=== PATIENT | female | born 1965 | race Caucasian/White ===

== ENCOUNTER 2019-03-28 18:04 | Inpatient (IN) | payer BC, OTHER ==
[~2019-03-28] VITALS: Ht 160 cm; Wt 64.2 kg
[2019-03-28] MEDS ORDERED: SODIUM CHLORIDE 0.9% 1L BAG IV* STA (18:43)
[2019-03-28] MEDS ORDERED: ONDANSETRON 4 MG INJ IV STA (18:44)
[2019-03-28] MEDS ORDERED: morphine 4 MG/ML VIAL IV STA (18:44)
[2019-03-28] MEDS ORDERED: CEFTRIAXONE 1 GM/50 ML (PMX) 50 ML IVPB ONE (19:00)
[2019-03-28] MEDS ORDERED: IBUPROFEN 600 MG TAB PO ONE (19:00)
--- NOTE | 2019-03-28 19:37 | ERD ---
ER Documentation Chief Complaint Chief Complaint abdominal pain around naval x2 wks, w/constipation, denies n/v/d HPI This is a 53-year-old woman referred here by medical clinic for diffuse abdominal pain and cramping and general constipation. She states the pain began in the lower abdomen about 2 weeks ago and has been getting steadily higher and more severe, the pain is been constant and daily now encompassing most of the abdomen worse on the right side compared to the left. She developed a fever today she has had no vomiting or diarrhea, denies weight loss, no chest pain or shortness of breath, no dysuria, no blood per rectum or melena. ROS All systems reviewed and are negative except as per history of present illness. Allergies Allergies: Coded Allergies: No Known Allergy (Unverified , 03/28/19) PMhx/Soc None Medical and Surgical Hx: pt denies Medical Hx, pt denies Surgical Hx Hx Alcohol Use: No Hx Substance Use: No Hx Tobacco Use: No Smoking Status: Never smoker FmHx Family History: No diabetes Physical Exam Vitals Vital Signs Date Temp Pulse Resp B/P (MAP) Pulse Ox O2 O2 Flow FiO2 Time Delivery Rate 03/28/19 101 17 136/77 97 Room Air 20:10 (96) 03/28/19 99.4 19:06 03/28/19 100.9 111 25 136/78 98 Room Air 18:31 (97) 03/28/19 100.9 122 18 120/63 96 18:08 (82) Physical Exam GENERAL: Well-developed, well-nourished, well-hydrated, febrile HEENT: Moist mucous membranes, pink conjunctiva, no cervical spine tenderness or step-off deformities, no goiter, no jaundice or icterus, extraocular movements intact without pain. No submandibular induration, and no pharyngeal erythema NEURO: Alert and oriented 3, cranial nerves II through XII intact bilaterally, pupils equal round reactive to light, no focal deficits or facial asymmetry, sensation intact distally Strength 5/5 in upper and lower extremities bilaterally CARDIAC: Tachycardic and regular no murmurs rubs or gallops LUNGS: Clear bilaterally no wheezing crackles or stridor ABDOMEN: Diffuse tenderness to touch with voluntary guarding, no rigidity or masses palpated SKIN: Warm and dry to touch, no abrasions, contusions, or hematomas, no lacerations, no ecchymosis, no target lesions, and without ulcers EXTREMITIES: No clubbing cyanosis or edema, calves are bilaterally symmetrical, no Homans sign, no popliteal cord sign. Distal pulses equal and bilateral PSYCH: Normal affect without agitation or irritability Result Diagram: 03/28/19185203/28/191852 Results 24 hrs Laboratory Tests Test 03/28/19 18:27 03/28/19 18:53 03/28/19 18:54 03/28/19 19:27 POC Venous 2.1 mmol/L Lactate White Blood Count 8.4 10^3/ul Red Blood Count 4.09 10^6/ul Hemoglobin 11.3 g/dl Hematocrit 34.0 % Mean Corpuscular 83.1 fl Volume Mean Corpuscular 27.6 pg Hemoglobin Mean Corpuscular 33.2 g/dl Hemoglobin Concen t Red Cell 15.8 % Distribution Width Platelet Count 335 10^3/UL Mean Platelet 9.8 fl Volume Immature 0.200 % Granulocytes % Neutrophils % 65.6 % Lymphocytes % 23.8 % Monocytes % 9.2 % Eosinophils % 0.8 % Basophils % 0.4 % Nucleated Red 0.0 /100WBC Blood Cells % Immature 0.020 10^3/ul Granulocytes # Neutrophils # 5.5 10^3/ul Lymphocytes # 2.0 10^3/ul Monocytes # 0.8 10^3/ul Eosinophils # 0.1 10^3/ul Basophils # 0.0 10^3/ul Nucleated Red 0.0 10^3/ul Blood Cells # Prothrombin Time 13.6 Sec Prothrombin Time 1.1 Ratio INR International 1.03 Normalized Ratio Activated 30.7 Sec Partial Thrombopl ast Time Sodium Level 139 mmol/L Potassium Level 3.5 mmol/L Chloride Level 104 mmol/L Carbon Dioxide 27 mmol/L Level Anion Gap 8 Blood Urea 11 mg/dl Nitrogen Creatinine 0.64 mg/dl Est Glomerular > 60 mL/min Filtrat Rate mL/min Glucose Level 166 mg/dl Calcium Level 9.0 mg/dl Total Bilirubin 0.4 mg/dl Direct Bilirubin 0.00 mg/dl Indirect 0.4 mg/dl Bilirubin Aspartate Amino 29 IU/L Transf (AST/SGOT) Alanine 21 IU/L Aminotransferase (ALT/SGPT) Alkaline 99 IU/L Phosphatase Troponin I < 0.012 ng/ml Total Protein 7.5 g/dl Albumin 4.1 g/dl Globulin 3.40 g/dl Albumin/Globulin 1.20 Ratio Lipase 99 U/L Lactic Acid Level 1.5 mmol/L Urine Color COLORLESS Urine Clarity CLEAR Urine pH 6.0 Urine Specific 1.003 [place] Urine Ketones NEGATIVE mg/dL Urine Nitrite NEGATIVE mg/dL Urine Bilirubin NEGATIVE mg/dL Urine NEGATIVE mg/dL Urobilinogen Urine Leukocyte NEGATIVE Elizabeth/ul Esterase Urine Hemoglobin NEGATIVE mg/dL Urine Glucose NEGATIVE mg/dL Urine Total NEGATIVE mg/dl Protein Current Medications Medications Dose Sig/Chica Start Time Status Last (Trade) Ordered Route PRN Stop Time Admin Dose Reason Admin Sodium 3,000 ml BOLUS OVER 2 03/28/19 DC 03/28/19 Chloride HOURS STAT 18:43 19:01 (NS) IV* 03/28/19 18:45 Ceftriaxone 50 ml @ ONCE ONCE 03/28/19 DC 03/28/19 Sodium 100 mls/hr IVPB 19:00 19:06 03/28/19 19:29 Ibuprofen 600 mg ONCE ONCE 03/28/19 DC 03/28/19 (Motrin) PO 19:00 19:06 03/28/19 19:01 Morphine 4 mg ONCE STAT 03/28/19 DC 03/28/19 Sulfate IV 18:44 19:02 (morphine) 03/28/19 18:46 Ondansetron 4 mg ONCE STAT 03/28/19 DC 03/28/19 HCl (Zofran IV 18:44 19:06 Inj) 03/28/19 18:46 IV Flush 3 ml PER 03/28/19 UNV (NS 3 ml) PROTOCOL IV 21:00 Ondansetron 4 mg Q6H PRN 03/28/19 UNV HCl (Zofran IV 21:00 Inj) NAUSEA/VOMITI NG 650 mg Q6H PRN 03/28/19 UNV Acetaminophen PO .PAIN 1-3 21:00 (Tylenol OR TEMP Tab) Morphine 2 mg Q4H PRN 03/28/19 UNV Sulfate IV .SEVERE 21:00 (morphine) PAIN 7-10 Docusate 100 mg Q12H PRN 03/28/19 UNV Sodium PO 21:00 (Colace) .CONSTIPATION Bisacodyl 5 mg DAILY PRN 03/28/19 UNV (Dulcolax) PO 21:00 .CONSTIPATION Vancomycin VANCOMYCIN PER 03/28/19 UNV HCl (Vanco PER PHARMACY PROTOCOL XX 21:00 Iv Per Pharmacy) Piperacillin 100 ml @ Q6 IVPB 03/29/19 UNV Sod/ 200 mls/hr 00:00 Tazobactam Sod Procedures/MDM IV line was established patient was placed on monitoring and evaluation advisor rhythm strip revealed a sinus rhythm at about 90 bpm with upright P and T waves. Patient was febrile, blood cultures have been ordered results are pending I will follow-up. I administered 3 L normal saline IV, ibuprofen 600 mg p.o., morphine 4 mg IV, Zofran 4 mg IV, ceftriaxone 1 g IV EKG performed, read by me: 99 bpm, normal sinus rhythm, normal axis, no acute ST segment changes, narrow QRS complex, with good R-wave progression in precordial leads. One AP view of the chest performed, read by me reveals no acute infiltrates, normal mediastinum, sharp costophrenic and cardiac borders, no air under the diaphragm. Otherwise unremarkable chest x-ray. CBC and electrolytes were normal, liver function tests were normal, troponin was negative, urine analysis was negative for infection, lactic acid was low at 2.1 then 1.5. I do not suspect sepsis. CT scan of the abdomen pelvis was performed, IMPRESSION: Thickening of the gastric body is seen which has a slightly nodular border extending into the surrounding fat. This is seen along with findings suspicious for peritoneal carcinomatosis and this could represent gastric neoplasm with peritoneal involvement. This can be better evaluated with endoscopy. No renal or ureteral calculi with no evidence of hydronephrosis. Mild compression of T12 is of unknown chronicity. Patient's pain resolved and vital signs are normal although she has a concerning CT scan and may require further inpatient management including antibiotics and further imaging to be deferred to admitting team. Departure Diagnosis: Primary Impression: Peritoneal carcinomatosis Additional Impression: Gastric neoplasm Condition: MACO Carrillo MD Mar 28, 2019 19:37
--- NOTE | 2019-03-28 20:46 | HP ---
Date/Time of Note Date/Time of Note DATE: 03/28/19 TIME: 20:45 Assessment/Plan VTE Prophylaxis SCD applied (from Nsg): Yes Pharmacological prophylaxis: NA/contraindicated Pharm contraindication: low risk/ambulating Lines/Catheters IV Catheter Type (from Nrsg): Saline Lock Assessment/Plan Hospital Course This is a 53-year female being admitted to the [facility] floor for: #1 severe sepsis: Possibly secondary to GI etiology versus fever secondary to underlying neoplasm. CT scan shows:Thickening of the gastric body is seen which has a slightly nodular border extending into the surrounding fat. This is seen along with findings suspicious for peritoneal carcinomatosis and this could represent gastric neoplasm with peritoneal involvement. This can be better evaluated with endoscopy. Put patient on broad-spectrum antibiotics at the current time of vancomycin and Zosyn. Trend lactic acid levels initially was 2.1. Await culture results. #2 suspect gastric neoplasm: Again CT scan shows signs of possible peritoneal carcinomatosis/gastric neoplasm. Recommendation of the current time is for endoscopy. We will put patient on clear liquid diet, consult GI for further evaluation. Will check tumor markers including CA 125, CEA, CA 1 99. Will consult hematology Dr. Melgoza. #3 normocytic anemia: We will check stool occult blood. patient denies any bleeding. #4 DVT GI prophylaxis: SCDs, no GI prophylaxis indicated Further treatment strategy will be implemented as per the clinical course. Result Diagram: 03/28/19185203/28/19 1853 Results 24hrs Laboratory Tests Test 03/28/19 18:27 03/28/19 18:53 03/28/19 18:54 03/28/19 19:27 POC Venous Lactate 2.1 *H White Blood Count 8.4 Red Blood Count 4.09 L Hemoglobin 11.3 L Hematocrit 34.0 L Mean Corpuscular 83.1 Volume Mean Corpuscular 27.6 L Hemoglobin Mean Corpuscular 33.2 Hemoglobin Concent Red Cell 15.8 H Distribution Width Platelet Count 335 Mean Platelet Volume 9.8 Immature 0.200 Granulocytes % Neutrophils % 65.6 Lymphocytes % 23.8 Monocytes % 9.2 Eosinophils % 0.8 Basophils % 0.4 Nucleated Red Blood 0.0 Cells % Immature 0.020 Granulocytes # Neutrophils # 5.5 Lymphocytes # 2.0 Monocytes # 0.8 Eosinophils # 0.1 Basophils # 0.0 Nucleated Red Blood 0.0 Cells # Prothrombin Time 13.6 Prothrombin Time 1.1 Ratio INR International 1.03 Normalized Ratio Activated 30.7 Partial Thromboplast Time Sodium Level 139 Potassium Level 3.5 Chloride Level 104 Carbon Dioxide Level 27 Anion Gap 8 Blood Urea Nitrogen 11 Creatinine 0.64 Est Glomerular > 60 Filtrat Rate mL/min Glucose Level 166 Calcium Level 9.0 Total Bilirubin 0.4 Direct Bilirubin 0.00 Indirect Bilirubin 0.4 Aspartate Amino 29 Transf (AST/SGOT) Alanine 21 Aminotransferase (AL T/SGPT) Alkaline Phosphatase 99 Troponin I < 0.012 Total Protein 7.5 Albumin 4.1 Globulin 3.40 H Albumin/Globulin 1.20 Ratio Lipase 99 Lactic Acid Level 1.5 Urine Color COLORLESS Urine Clarity CLEAR Urine pH 6.0 Urine Specific 1.003 [place] Urine Ketones NEGATIVE Urine Nitrite NEGATIVE Urine Bilirubin NEGATIVE Urine Urobilinogen NEGATIVE Urine Leukocyte NEGATIVE Esterase Urine Hemoglobin NEGATIVE Urine Glucose NEGATIVE Urine Total Protein NEGATIVE HPI/ROS Admit Date/Time Admit Date/Time Hx of Present Illness Chief complaint: Abdominal pain x2 weeks This is a 53-year-old woman referred here by medical clinic for diffuse abdominal pain and cramping and general constipation. She states the pain began in the lower abdomen about 2 weeks ago and has been getting steadily higher and more severe, the pain is been constant and daily now encompassing most of the abdomen worse on the right side compared to the left. She developed a fever today she has had no vomiting or diarrhea, denies weight loss, no chest pain or shortness of breath, no dysuria, no blood per rectum or melena. She did report her last bowel movement was yesterday. Allergies: NKDA Medications: None ROS Const: As per HPI Eyes : No pain discharge or redness or change in visual acuity ENT: No pain, sore throat, congestion, congestion, dysphagia or discharge Respiratory: No shortness of breath, cough, sputum, wheezing, or pleuritic pain Cardiovascular: No chest pain, palpitation, PND, or edema GI : As per HPI Genitourinary: No dysuria, hematuria, flank pain , discharge or CVA tenderness Musculoskeletal: No joint pain, back pain, neck pain, restricted range of motion in neck or joints Skin: No rash, bruising or hives Neuro: No headache, dizziness, syncope, seizure, focal weakness Endocrine: No polyuria, polydipsia, temperature intolerance Psych: No hallucination, depression, anxiety or suicidal ideation PMH/Family/Social Past Medical History Medical History: no pertinent history Coded Allergies: No Known Allergy (Unverified , 03/28/19) Past Surgical History x2, tubal ligation Family History Significant Family History: no pertinent family hx Social History Alcohol Use: none Smoking Status: Never smoker Drug Use: none Exam/Review of Systems Vital Signs Vitals Vital Signs Date Temp Pulse Resp B/P (MAP) Pulse Ox O2 O2 Flow FiO2 Time Delivery Rate 03/28/19 101 17 136/77 97 Room Air 20:10 (96) 03/28/19 99.4 19:06 Exam Exam General: Patient is a pleasant female currently lying in bed in no acute distress HEENT: Atraumatic, normocephalic. The pupils are equal, round and reactive. Extraocular motor are intact Neck: Supple with full range of motion. No rigidity or meningismus Chest: Nontender Lungs: Clear to auscultation bilaterally no crackles rales or wheezing Heart: Normal S1-S2, Regular rhythm and rate. No murmur, S3, or S4 Abdomen: Soft , tender to palpation over the umbilical area, normal bowel sounds, no rebound or guarding. Extremities: Normal to inspection, no edema no cyanosis Neurologic: Normal mental status, speech normal, cranial nerves II through XII are intact, motor and sensory are intact, no focal weakness Additional Comments PROCEDURE: CT abdomen and pelvis without contrast. CLINICAL INDICATION: Abdominal pain. TECHNIQUE: CT scan of the abdomen and pelvis without contrast was performed on a multi-slice CT scanner . Sagittal and coronal reformatted images were obtained from the axial source images. One or more of the following dose reduction techniques were used: - Automated exposure control. - Adjustment of the mA and/or kV according to patient size. - Use of iterative reconstruction technique. DICOM images are available DLP 434.3 mGycm. CTDIvol 7.4 mGy COMPARISON: None FINDINGS: Fine detail of the soft tissues is limited secondary to the lack of IV contrast. Evaluation for enhancing lesions cannot be performed. Lower thorax:. The lung bases are clear. Liver: There is uniform density of the liver with no gross focal lesion. Biliary: The gallbladder is unremarkable without surrounding inflammation. No biliary dilatation. Pancreas: Homogeneous density of the pancreas without visible focal lesion or cystic abnormality. There is no pancreatic ductal dilatation. Spleen: Unremarkable without enlargement or focal lesion. Adrenal Glands: The adrenal glands are within normal limits without mass. Urinary: The kidneys are symmetric in size bilaterally. There are no visible renal or ureteral stones. There is no hydronephrosis. Gastrointestinal: There is irregular wall thickening of the distal gastric body with a nodular border extending into the surrounding fat. There is no bowel obstruction or appendicitis. Lymph nodes: Borderline lymph nodes are seen around the gastric margin. Vascular: The aorta is unremarkable. Peritoneum/mesentery: There is mild intraperitoneal free fluid with the presence of multiple small soft tissue nodular foci within the peritoneal cavity with mild anterior mesenteric thickening. There is no free air. Reproductive organs: The uterus and adnexal structures are grossly within normal limits. Musculoskeletal: Degenerative changes are seen in the lumbar spine with mild compression of T12. Other: None IMPRESSION: Thickening of the gastric body is seen which has a slightly nodular border extending into the surrounding fat. This is seen along with findings suspicious for peritoneal carcinomatosis and this could represent gastric neoplasm with peritoneal involvement. This can be better evaluated with endoscopy. No renal or ureteral calculi with no evidence of hydronephrosis. Mild compression of T12 is of unknown chronicity. RPTAT: AA .Randell Gonzalez MD, MD Date Time Electronically viewed and signed by .Randell Gonzalez MD, MD on 03/28/2019 19:42 .J/ CC: MACO BURGOS MD [phone] PROCEDURE: XR Chest. CLINICAL INDICATION: Chest pain. Sepsis TECHNIQUE: Portable AP view of the chest was obtained. COMPARISON: None. FINDINGS: The cardiomediastinal silhouette is within normal limits. The lungs are clear. There is no evidence for pleural effusion, pneumothorax or pulmonary vascular congestion. The osseous structures are intact with no evidence for acute abnormality. RPTAT:HJJR IMPRESSION: No evidence for acute intrathoracic pathology. Florin Brooks, Physician Date Time Electronically viewed and signed by Florin Brooks, Physician on 03/28/2019 19:00 JR/ CC: MACO BURGOS MD [id number] BAO BARRETT Mar 28, 2019 20:46
[2019-03-28] MEDS ORDERED: ACETAMINOPHEN 325 MG TAB PO PRN (21:00)
[2019-03-28] MEDS ORDERED: DOCUSATE SODIUM 100 MG CAP PO PRN (21:00)
[2019-03-28] MEDS ORDERED: BISACODYL (EC) 5 MG TAB PO PRN (21:00)
[2019-03-28] MEDS ORDERED: NACL 0.9% 3 ML SYG IV SCH (21:00)
[2019-03-28] MEDS ORDERED: VANCOMYCIN IV PER PHARMACY XX SCH (21:00)
[2019-03-28] MEDS ORDERED: ONDANSETRON 4 MG INJ IV PRN (21:00)
[2019-03-28] MEDS ORDERED: VANCOMYCIN HCL 1.25 GM in SOD CHLORIDE 0.9% 250 ML IVPB SCH (22:30)
[2019-03-28 22:39] VITALS: Ht 160 cm; Wt 64.2 kg
[2019-03-28 22:45] VITALS: BP 116/57; PULSE 88; RESP 18
[2019-03-28] MEDS ORDERED: POLY17PO6 PO (23:11)
[2019-03-28] MEDS: PIPER-TAZO 3.375 GM IV (PMX) 100 ML IVPB SCH (23:33)
[2019-03-29] VITALS (7 sets, daily range): BP systolic 111–146; BP diastolic 53–72; PULSE 84–100; RESP 16–20
[2019-03-29] MEDS: PIPER-TAZO 3.375 GM IV (PMX) 100 ML IVPB SCH ×4 (02:00→17:26)
[2019-03-29] MEDS ORDERED: KETOROLAC 15 MG INJ IV STA (03:21)
[2019-03-29] MEDS ORDERED: DIPHENHYDRAMINE 50 MG CAP PO ONE (03:30)
[2019-03-29] MEDS: VANCOMYCIN 750 MG (PMX) 250 ML IVPB SCH ×2 (10:12→22:05)
--- NOTE | 2019-03-29 10:37 | CONS ---
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 Patient seen in collaboration with Dr. Soto CC: BLADE SOTO MD ; Consultation Date/Type/Reason Admit Date/Time Date of Consultation: Mar 29, 2019 Type of Consult GI Reason for Consultation Abdominal pain Date/Time of Note DATE: 03/29/19 TIME: 10:29 Hx of Present Illness This is a 53-year-old [place]-speaking female with PMH of pre-diabetes who presented to the emergency department with complaints of progressive abdominal pain x2 weeks without nausea or vomiting, and fevers. Work-up in the ED included a CT abdomen/pelvis without contrast. Findings are suspicious for peritoneal carcinomatosis which could represent gastric neoplasm with peritoneal involvement. Labs reveal mild normocytic anemia. She has been consulted for endoscopic evaluation. Patient denies overt signs of GI. She additionally den ies unintentional weight loss and has never had an EGD or colonoscopy. Review of Systems: A 12 system, review was conducted and is negative except as noted in the HPI or here. Past Medical History Medical History: no pertinent history Home Meds Reported Medications Polyethylene Glycol* (Miralax*) 17 Gm Powd.pack, 8.5 GM PO DAILY, #30 PACKET 03/28/19 Medications Current Medications IV Flush (NS 3 ml) 3 ml PER PROTOCOL IV ; Start 03/28/19 at 21:00 Ondansetron HCl (Zofran Inj) 4 mg Q6H PRN IV NAUSEA/VOMITING; Start 03/28/19 at 21:00 Acetaminophen (Tylenol Tab) 650 mg Q6H PRN PO .PAIN 1-3 OR TEMP; Start 03/28/19 at 21:00 Morphine Sulfate (morphine) 2 mg Q4H PRN IV .SEVERE PAIN 7-10; Start 03/28/19 at 21:00 Docusate Sodium (Colace) 100 mg Q12H PRN PO .CONSTIPATION; Start 03/28/19 at 21:00 Bisacodyl (Dulcolax) 5 mg DAILY PRN PO .CONSTIPATION; Start 03/28/19 at 21:00 Vancomycin HCl (Vanco Iv Per Pharmacy) VANCOMYCIN PER PHARMACY PER PROTOCOL XX ; Start 03/28/19 at 21:00 Piperacillin Sod/ Tazobactam Sod 100 ml @ 200 mls/hr Q6 IVPB Last administered on 03/29/19at 05:35; Admin Dose 200 MLS/HR; Start 03/28/19 at 22:00 Vancomycin/Sodium Chloride 250 ml @ 125 mls/hr Q12H IVPB Last administered on 03/29/19at 10:12; Admin Dose 125 MLS/HR; Start 03/29/19 at 10:00 Miscellaneous Information (*Rx Drug Level Order Reminder*) VANCO TR AT 0900 0900 ONCE XX ; Start 03/30/19 at 09:00; Stop 03/30/19 at 09:01 Allergies: Coded Allergies: No Known Allergy (Unverified , 03/28/19) Social History Alcohol Use: none Smoking Status: Never smoker Drug Use: none Exam/Review of Systems Exam Vitals Vital Signs Date Temp Pulse Resp B/P (MAP) Pulse Ox O2 O2 Flow FiO2 Time Delivery Rate 03/29/19 98.1 84 20 121/57 98 07:50 (78) 03/28/19 Room Air 21:51 Intake and Output 03/28/19 03/28/19 03/29/19 1515:00 23:00 07:00 IntakeIntake Total 118 ml 450 ml BalanceBalance 118 ml 450 ml Exam PHYSICAL EXAMINATION: GENERAL: Alert & oriented x 3, in no acute distress SKIN: No lesions HEAD: Normocephalic, atraumatic, no tenderness. EYES: Pupils equal reactive to light, no discharge. EARS/NOSE AND THROAT: Ears normal, nose normal, oropharynx normal. NECK: Supple, no masses CHEST: Inspection within normal limits. CARDIOVASCULAR: Heart: Regular rate and rhythm RESPIRATORY: Lungs clear to auscultation GASTROINTESTINAL AND LIVER: Abdomen: Soft, non tenderness, non-distended, no hernias, no masses, no organomegaly, no ascites, no guarding, no rebound tenderness, normoactive bowel sounds. Rectal: Deferred. EXTREMITIES: No cyanosis, clubbing or edema. Results Result Diagram: 03/29/1943403/29/19434 Results 24hrs Laboratory Tests Test 03/28/19 18:27 03/28/19 18:53 03/28/19 18:54 03/28/19 19:27 POC Venous Lactate 2.1 *H White Blood Count 8.4 Red Blood Count 4.09 L Hemoglobin 11.3 L Hematocrit 34.0 L Mean Corpuscular 83.1 Volume Mean Corpuscular 27.6 L Hemoglobin Mean Corpuscular 33.2 Hemoglobin Concent Red Cell 15.8 H Distribution Width Platelet Count 335 Mean Platelet Volume 9.8 Immature 0.200 Granulocytes % Neutrophils % 65.6 Lymphocytes % 23.8 Monocytes % 9.2 Eosinophils % 0.8 Basophils % 0.4 Nucleated Red Blood 0.0 Cells % Immature 0.020 Granulocytes # Neutrophils # 5.5 Lymphocytes # 2.0 Monocytes # 0.8 Eosinophils # 0.1 Basophils # 0.0 Nucleated Red Blood 0.0 Cells # Prothrombin Time 13.6 Prothrombin Time 1.1 Ratio INR International 1.03 Normalized Ratio Activated 30.7 Partial Thromboplast Time Sodium Level 139 Potassium Level 3.5 Chloride Level 104 Carbon Dioxide Level 27 Anion Gap 8 Blood Urea Nitrogen 11 Creatinine 0.64 Est Glomerular > 60 Filtrat Rate mL/min Glucose Level 166 Calcium Level 9.0 Total Bilirubin 0.4 Direct Bilirubin 0.00 Indirect Bilirubin 0.4 Aspartate Amino 29 Transf (AST/SGOT) Alanine 21 Aminotransferase (AL T/SGPT) Alkaline Phosphatase 99 Troponin I < 0.012 Total Protein 7.5 Albumin 4.1 Globulin 3.40 H Albumin/Globulin 1.20 Ratio Lipase 99 Carcinoembryonic < 0.3 Antigen CA 19-9 Antigen 10.1 CA 125 Antigen 42.1 H Lactic Acid Level 1.5 Urine Color COLORLESS Urine Clarity CLEAR Urine pH 6.0 Urine Specific 1.003 [place] Urine Ketones NEGATIVE Urine Nitrite NEGATIVE Urine Bilirubin NEGATIVE Urine Urobilinogen NEGATIVE Urine Leukocyte NEGATIVE Esterase Urine Hemoglobin NEGATIVE Urine Glucose NEGATIVE Urine Total Protein NEGATIVE Test 03/29/19 04:32 03/29/19 04:35 Iron Level 60 Total Iron Binding 316 Capacity Percent Iron 19 L Saturation Ferritin 11.1 White Blood Count 7.3 Red Blood Count 3.86 L Hemoglobin 10.6 L Hematocrit 32.2 L Mean Corpuscular 83.4 Volume Mean Corpuscular 27.5 L Hemoglobin Mean Corpuscular 32.9 Hemoglobin Concent Red Cell 16.1 H Distribution Width Platelet Count 308 Mean Platelet Volume 10.5 H Immature 0.100 Granulocytes % Neutrophils % 61.0 Lymphocytes % 28.6 Monocytes % 8.9 Eosinophils % 1.0 Basophils % 0.4 Nucleated Red Blood 0.0 Cells % Immature 0.010 Granulocytes # Neutrophils # 4.4 Lymphocytes # 2.1 Monocytes # 0.7 Eosinophils # 0.1 Basophils # 0.0 Nucleated Red Blood 0.0 Cells # Sodium Level 143 Potassium Level 3.8 Chloride Level 110 Carbon Dioxide Level 29 Anion Gap 4 L Blood Urea Nitrogen 7 Creatinine 0.68 Est Glomerular > 60 Filtrat Rate mL/min Glucose Level 94 # Hemoglobin A1c 6.0 H Calcium Level 8.4 Magnesium Level 2.1 Total Bilirubin 0.6 Direct Bilirubin 0.00 Indirect Bilirubin 0.6 Aspartate Amino 24 Transf (AST/SGOT) Alanine 21 Aminotransferase (AL T/SGPT) Alkaline Phosphatase 77 Total Protein 6.0 #L Albumin 3.2 L Globulin 2.80 Albumin/Globulin 1.14 Ratio Triglycerides Level 87 Cholesterol Level 154 LDL Cholesterol, 99 Calculated HDL Cholesterol 38 Cholesterol/HDL 4.0 Ratio Thyroid Stimulating 6.460 H Hormone (TSH) Medications Medication Current Medications IV Flush (NS 3 ml) 3 ml PER PROTOCOL IV ; Start 03/28/19 at 21:00 Ondansetron HCl (Zofran Inj) 4 mg Q6H PRN IV NAUSEA/VOMITING; Start 03/28/19 at 21:00 Acetaminophen (Tylenol Tab) 650 mg Q6H PRN PO .PAIN 1-3 OR TEMP; Start 03/28/19 at 21:00 Morphine Sulfate (morphine) 2 mg Q4H PRN IV .SEVERE PAIN 7-10; Start 03/28/19 at 21:00 Docusate Sodium (Colace) 100 mg Q12H PRN PO .CONSTIPATION; Start 03/28/19 at 21:00 Bisacodyl (Dulcolax) 5 mg DAILY PRN PO .CONSTIPATION; Start 03/28/19 at 21:00 Vancomycin HCl (Vanco Iv Per Pharmacy) VANCOMYCIN PER PHARMACY PER PROTOCOL XX ; Start 03/28/19 at 21:00 Piperacillin Sod/ Tazobactam Sod 100 ml @ 200 mls/hr Q6 IVPB Last administered on 03/29/19at 05:35; Admin Dose 200 MLS/HR; Start 03/28/19 at 22:00 Vancomycin/Sodium Chloride 250 ml @ 125 mls/hr Q12H IVPB Last administered on 03/29/19at 10:12; Admin Dose 125 MLS/HR; Start 03/29/19 at 10:00 Miscellaneous Information (*Rx Drug Level Order Reminder*) VANCO TR AT 0900 0900 ONCE XX ; Start 03/30/19 at 09:00; Stop 03/30/19 at 09:01 EB CONTRERAS Mar 29, 2019 10:37
[2019-03-29] MEDS: morphine 2 MG INJ IV PRN (14:33)
--- NOTE | 2019-03-29 15:32 | PN ---
Date/Time of Note Date/Time of Note DATE: 03/29/19 TIME: 15:30 Assessment/Plan VTE Prophylaxis Risk score (from Ns)>0 risk: 1 SCD applied (from Ns): No SCD contraindicated: other Pharmacological prophylaxis: NA/contraindicated Pharm contraindication: low risk/ambulating Lines/Catheters IV Catheter Type [facility]from [facility] Saline Lock Assessment/Plan Hospital Course SUBJECTIVE: Complains of abdominal pain. OBJECTIVE: Physical Exam General: Adequately build 53 year-old female lying in bed in no apparent distress. HEENT: Normocephalic, atraumatic. Eyes: Anicteric sclerae, conjunctivae clear. ENT: Nasal septum midline, oral mucosa moist. Neck supple, no JVD noticed. Respiratory: Bilaterally clear breath sounds. No use of accessory muscles of respiration. No adventitious breath sounds. Cardiovascular: S1, S2 heard. No murmurs or gallops. Abdomen: Soft and nondistended. Minimal epigastric tenderness. Bowel sounds positive in all 4 quadrants. Genitourinary: Deferred. Extremities: No cyanosis, no clubbing, no edema. Peripheral pulses palpable. Neurologic: Cranial nerves II through XII grossly intact. The patient is awake, alert, and oriented. Skin: Normal skin turgor. No skin rashes. Labs & Vitals per chart ASSESSMENT & PLAN 53-year-old female with no significant past medical he was referred by her medical clinic for diffuse abdominal pain, cramping anginal constipation was found to have underlying febrile illness, tachycardia, and lactic acidosis in the emergency room with CT of the abdomen showing thickening of the gastric body suspicious for peritoneal carcinomatosis and possible neoplasm, who was admitted to inpatient setting for further treatment and evaluation. 1. Sepsis with febrile illness, tachycardia, and lactic acidosis, present on admission. Etiology unclear. On empiric antimicrobials. If cultures are negative, the patient will be taken off antibiotics. 2. Thickening of the gastric body with possible underlying gastric neoplasm. Gastroenterology has been consulted. The patient is scheduled for esophagogastroduodenoscopy. Tumor markers are pending at this time. 3. Prediabetes. Hemoglobin A1c 6.0. Monitor glycemic trends. 4. Normocytic anemia. Etiology unclear. Stool for OB x1-. Monitor H&H closely. The patient scheduled for esophagogastroduodenoscopy. 5. Fluids, electrolytes, and nutrition. N.p.o. except for medications. IV fluids. 6. DVT prophylaxis. Bilateral SCDs. 7. Plan. Continue empiric antimicrobials. Await final cultures. Await esophagogastroduodenoscopy. The patient was seen in collaboration with Dr. Pryor. Result Diagram: 03/29/19 0435 03/29/19 0435 Results 24hrs Laboratory Tests Test 03/28/19 18:27 03/28/19 18:53 03/28/19 18:54 03/28/19 19:27 POC Venous Lactate 2.1 *H White Blood Count 8.4 Red Blood Count 4.09 L Hemoglobin 11.3 L Hematocrit 34.0 L Mean Corpuscular 83.1 Volume Mean Corpuscular 27.6 L Hemoglobin Mean Corpuscular 33.2 Hemoglobin Concent Red Cell 15.8 H Distribution Width Platelet Count 335 Mean Platelet Volume 9.8 Immature 0.200 Granulocytes % Neutrophils % 65.6 Lymphocytes % 23.8 Monocytes % 9.2 Eosinophils % 0.8 Basophils % 0.4 Nucleated Red Blood 0.0 Cells % Immature 0.020 Granulocytes # Neutrophils # 5.5 Lymphocytes # 2.0 Monocytes # 0.8 Eosinophils # 0.1 Basophils # 0.0 Nucleated Red Blood 0.0 Cells # Prothrombin Time 13.6 Prothrombin Time 1.1 Ratio INR International 1.03 Normalized Ratio Activated 30.7 Partial Thromboplast Time Sodium Level 139 Potassium Level 3.5 Chloride Level 104 Carbon Dioxide Level 27 Anion Gap 8 Blood Urea Nitrogen 11 Creatinine 0.64 Est Glomerular > 60 Filtrat Rate mL/min Glucose Level 166 Calcium Level 9.0 Total Bilirubin 0.4 Direct Bilirubin 0.00 Indirect Bilirubin 0.4 Aspartate Amino 29 Transf (AST/SGOT) Alanine 21 Aminotransferase (AL T/SGPT) Alkaline Phosphatase 99 Troponin I < 0.012 Total Protein 7.5 Albumin 4.1 Globulin 3.40 H Albumin/Globulin 1.20 Ratio Lipase 99 Carcinoembryonic < 0.3 Antigen CA 19-9 Antigen 10.1 CA 125 Antigen 42.1 H Lactic Acid Level 1.5 Urine Color COLORLESS Urine Clarity CLEAR Urine pH 6.0 Urine Specific 1.003 [place] Urine Ketones NEGATIVE Urine Nitrite NEGATIVE Urine Bilirubin NEGATIVE Urine Urobilinogen NEGATIVE Urine Leukocyte NEGATIVE Esterase Urine Hemoglobin NEGATIVE Urine Glucose NEGATIVE Urine Total Protein NEGATIVE Test 03/29/19 04:32 03/29/19 04:35 03/29/19 10:05 Iron Level 60 Total Iron Binding 316 Capacity Percent Iron 19 L Saturation Ferritin 11.1 White Blood Count 7.3 Red Blood Count 3.86 L Hemoglobin 10.6 L Hematocrit 32.2 L Mean Corpuscular 83.4 Volume Mean Corpuscular 27.5 L Hemoglobin Mean Corpuscular 32.9 Hemoglobin Concent Red Cell 16.1 H Distribution Width Platelet Count 308 Mean Platelet Volume 10.5 H Immature 0.100 Granulocytes % Neutrophils % 61.0 Lymphocytes % 28.6 Monocytes % 8.9 Eosinophils % 1.0 Basophils % 0.4 Nucleated Red Blood 0.0 Cells % Immature 0.010 Granulocytes # Neutrophils # 4.4 Lymphocytes # 2.1 Monocytes # 0.7 Eosinophils # 0.1 Basophils # 0.0 Nucleated Red Blood 0.0 Cells # Sodium Level 143 Potassium Level 3.8 Chloride Level 110 Carbon Dioxide Level 29 Anion Gap 4 L Blood Urea Nitrogen 7 Creatinine 0.68 Est Glomerular > 60 Filtrat Rate mL/min Glucose Level 94 # Hemoglobin A1c 6.0 H Calcium Level 8.4 Magnesium Level 2.1 Total Bilirubin 0.6 Direct Bilirubin 0.00 Indirect Bilirubin 0.6 Aspartate Amino 24 Transf (AST/SGOT) Alanine 21 Aminotransferase (AL T/SGPT) Alkaline Phosphatase 77 Total Protein 6.0 #L Albumin 3.2 L Globulin 2.80 Albumin/Globulin 1.14 Ratio Triglycerides Level 87 Cholesterol Level 154 LDL Cholesterol, 99 Calculated HDL Cholesterol 38 Cholesterol/HDL 4.0 Ratio Thyroid Stimulating 6.460 H Hormone (TSH) Stool Occult Blood NEGATIVE Exam/Review of Systems Exam Vitals Vital Signs Date Temp Pulse Resp B/P (MAP) Pulse Ox O2 O2 Flow FiO2 Time Delivery Rate 03/29/19 98.6 92 20 134/60 96 14:20 (84) 03/28/19 Room Air 21:51 Intake and Output 03/28/19 03/28/19 03/29/19 1515:00 23:00 07:00 IntakeIntake Total 118 ml 450 ml BalanceBalance 118 ml 450 ml Results Results 24hrs Laboratory Tests Test 03/28/19 18:27 03/28/19 18:53 03/28/19 18:54 03/28/19 19:27 POC Venous Lactate 2.1 *H White Blood Count 8.4 Red Blood Count 4.09 L Hemoglobin 11.3 L Hematocrit 34.0 L Mean Corpuscular 83.1 Volume Mean Corpuscular 27.6 L Hemoglobin Mean Corpuscular 33.2 Hemoglobin Concent Red Cell 15.8 H Distribution Width Platelet Count 335 Mean Platelet Volume 9.8 Immature 0.200 Granulocytes % Neutrophils % 65.6 Lymphocytes % 23.8 Monocytes % 9.2 Eosinophils % 0.8 Basophils % 0.4 Nucleated Red Blood 0.0 Cells % Immature 0.020 Granulocytes # Neutrophils # 5.5 Lymphocytes # 2.0 Monocytes # 0.8 Eosinophils # 0.1 Basophils # 0.0 Nucleated Red Blood 0.0 Cells # Prothrombin Time 13.6 Prothrombin Time 1.1 Ratio INR International 1.03 Normalized Ratio Activated 30.7 Partial Thromboplast Time Sodium Level 139 Potassium Level 3.5 Chloride Level 104 Carbon Dioxide Level 27 Anion Gap 8 Blood Urea Nitrogen 11 Creatinine 0.64 Est Glomerular > 60 Filtrat Rate mL/min Glucose Level 166 Calcium Level 9.0 Total Bilirubin 0.4 Direct Bilirubin 0.00 Indirect Bilirubin 0.4 Aspartate Amino 29 Transf (AST/SGOT) Alanine 21 Aminotransferase (AL T/SGPT) Alkaline Phosphatase 99 Troponin I < 0.012 Total Protein 7.5 Albumin 4.1 Globulin 3.40 H Albumin/Globulin 1.20 Ratio Lipase 99 Carcinoembryonic < 0.3 Antigen CA 19-9 Antigen 10.1 CA 125 Antigen 42.1 H Lactic Acid Level 1.5 Urine Color COLORLESS Urine Clarity CLEAR Urine pH 6.0 Urine Specific 1.003 [place] Urine Ketones NEGATIVE Urine Nitrite NEGATIVE Urine Bilirubin NEGATIVE Urine Urobilinogen NEGATIVE Urine Leukocyte NEGATIVE Esterase Urine Hemoglobin NEGATIVE Urine Glucose NEGATIVE Urine Total Protein NEGATIVE Test 03/29/19 04:32 03/29/19 04:35 03/29/19 10:05 Iron Level 60 Total Iron Binding 316 Capacity Percent Iron 19 L Saturation Ferritin 11.1 White Blood Count 7.3 Red Blood Count 3.86 L Hemoglobin 10.6 L Hematocrit 32.2 L Mean Corpuscular 83.4 Volume Mean Corpuscular 27.5 L Hemoglobin Mean Corpuscular 32.9 Hemoglobin Concent Red Cell 16.1 H Distribution Width Platelet Count 308 Mean Platelet Volume 10.5 H Immature 0.100 Granulocytes % Neutrophils % 61.0 Lymphocytes % 28.6 Monocytes % 8.9 Eosinophils % 1.0 Basophils % 0.4 Nucleated Red Blood 0.0 Cells % Immature 0.010 Granulocytes # Neutrophils # 4.4 Lymphocytes # 2.1 Monocytes # 0.7 Eosinophils # 0.1 Basophils # 0.0 Nucleated Red Blood 0.0 Cells # Sodium Level 143 Potassium Level 3.8 Chloride Level 110 Carbon Dioxide Level 29 Anion Gap 4 L Blood Urea Nitrogen 7 Creatinine 0.68 Est Glomerular > 60 Filtrat Rate mL/min Glucose Level 94 # Hemoglobin A1c 6.0 H Calcium Level 8.4 Magnesium Level 2.1 Total Bilirubin 0.6 Direct Bilirubin 0.00 Indirect Bilirubin 0.6 Aspartate Amino 24 Transf (AST/SGOT) Alanine 21 Aminotransferase (AL T/SGPT) Alkaline Phosphatase 77 Total Protein 6.0 #L Albumin 3.2 L Globulin 2.80 Albumin/Globulin 1.14 Ratio Triglycerides Level 87 Cholesterol Level 154 LDL Cholesterol, 99 Calculated HDL Cholesterol 38 Cholesterol/HDL 4.0 Ratio Thyroid Stimulating 6.460 H Hormone (TSH) Stool Occult Blood NEGATIVE Medications Medication Current Medications IV Flush (NS 3 ml) 3 ml PER PROTOCOL IV ; Start 03/28/19 at 21:00 Ondansetron HCl (Zofran Inj) 4 mg Q6H PRN IV NAUSEA/VOMITING; Start 03/28/19 at 21:00 Acetaminophen (Tylenol Tab) 650 mg Q6H PRN PO .PAIN 1-3 OR TEMP; Start 03/28/19 at 21:00 Morphine Sulfate (morphine) 2 mg Q4H PRN IV .SEVERE PAIN 7-10 Last administered on 03/29/19at 14:33; Admin Dose 2 MG; Start 03/28/19 at 21:00 Docusate Sodium (Colace) 100 mg Q12H PRN PO .CONSTIPATION; Start 03/28/19 at 21:00 Bisacodyl (Dulcolax) 5 mg DAILY PRN PO .CONSTIPATION; Start 03/28/19 at 21:00 Vancomycin HCl (Vanco Iv Per Pharmacy) VANCOMYCIN PER PHARMACY PER PROTOCOL XX ; Start 03/28/19 at 21:00 Piperacillin Sod/ Tazobactam Sod 100 ml @ 200 mls/hr Q6 IVPB Last administered on 03/29/19at 14:48; Admin Dose 200 MLS/HR; Start 03/28/19 at 22:00 Vancomycin/Sodium Chloride 250 ml @ 125 mls/hr Q12H IVPB Last administered on 03/29/19at 10:12; Admin Dose 125 MLS/HR; Start 03/29/19 at 10:00 Miscellaneous Information (*Rx Drug Level Order Reminder*) TOROO TR AT 0900 0900 ONCE XX ; Start 03/30/19 at 09:00; Stop 03/30/19 at 09:01 JENNA SYKES NP Mar 29, 2019 15:32
--- NOTE | 2019-03-29 18:10 | HPN ---
Date/Time of Note Date/Time of Note DATE: 03/29/19 TIME: 18:10 Interval H&P Admission Note Pt. seen H&P reviewed: No system changes BLADE ARENSA MD Mar 29, 2019 18:10
--- NOTE | 2019-03-29 18:12 | PREAC ---
Date/Time of Note Date/Time of Note DATE: 03/29/19 TIME: 18:10 Anesthesia Eval and Record Evaluation Time Pre-Procedure Interview DATE: 03/29/19 TIME: 18:10 Age 53 Sex female NPO: 8 hrs Preoperative diagnosis Abdominal Pain Planned procedure EGD Past Medical History Past Medical History: Includes Cardio: Dyslipidemia Hepatic: Other (Fatty Liver) GI: GERD, Obesity Heme: Anemia Surgery & Anesthesia Issues No known issue Meds Anticoagulation: No Beta Odin within 24 hr: No Reason Beta Odin not given: Pt. not on B-Odin Reported Medications Polyethylene Glycol* (Miralax*) 17 Gm Powd.pack, 8.5 GM PO DAILY, #30 PACKET 03/28/19 Current Medications IV Flush (NS 3 ml) 3 ml PER PROTOCOL IV ; Start 03/28/19 at 21:00 Ondansetron HCl (Zofran Inj) 4 mg Q6H PRN IV NAUSEA/VOMITING; Start 03/28/19 at 21:00 Acetaminophen (Tylenol Tab) 650 mg Q6H PRN PO .PAIN 1-3 OR TEMP; Start 03/28/19 at 21:00 Morphine Sulfate (morphine) 2 mg Q4H PRN IV .SEVERE PAIN 7-10 Last administered on 03/29/19at 14:33; Admin Dose 2 MG; Start 03/28/19 at 21:00 Docusate Sodium (Colace) 100 mg Q12H PRN PO .CONSTIPATION; Start 03/28/19 at 21:00 Bisacodyl (Dulcolax) 5 mg DAILY PRN PO .CONSTIPATION; Start 03/28/19 at 21:00 Vancomycin HCl (Vanco Iv Per Pharmacy) VANCOMYCIN PER PHARMACY PER PROTOCOL XX ; Start 03/28/19 at 21:00 Piperacillin Sod/ Tazobactam Sod 100 ml @ 200 mls/hr Q6 IVPB Last administered on 03/29/19at 14:48; Admin Dose 200 MLS/HR; Start 03/28/19 at 22:00 Vancomycin/Sodium Chloride 250 ml @ 125 mls/hr Q12H IVPB Last administered on 03/29/19at 10:12; Admin Dose 125 MLS/HR; Start 03/29/19 at 10:00 Miscellaneous Information (*Rx Drug Level Order Reminder*) VANCO TR AT 0900 0900 ONCE XX ; Start 03/30/19 at 09:00; Stop 03/30/19 at 09:01 Meds reviewed: Yes Allergies Coded Allergies: No Known Allergy (Unverified , 03/28/19) Allergies Reviewed: Yes Labs/Studies Labs Reviewed: Reviewed by anesthesiologist Result Diagram: 03/29/19 0435 03/29/19 0435 Laboratory Tests 03/29/19 04:35 Blood Bank Test 03/28/19 18:54 Antibody Screen NEGATIVE Blood Type O POSITIVE test: N/A Studies: ECG (n/a), CXR (n/a) Pre-procedure Exam Last vitals Vital Signs Date Temp Pulse Resp B/P (MAP) Pulse Ox O2 O2 Flow FiO2 Time Delivery Rate 03/29/19 98.0 100 20 136/72 96 Room Air 16:15 (93) Airway: Adequate mouth opening, Adequate thyromental dist Mallampati: Mallampati II Teeth: Normal Lung: Normal Heart: Normal ASA Physical Status ASA physical status: 3 Emergency: None Planned Anesthetic General/MAC: MAC Planned Pain Management Parenteral pain med Pre-operative Attestations Prior to commencing anesthesia and surgery, the patient was re-evaluated, there was verification of: *The patient's identity *The results of appropriate recent lab work and preoperative vital signs *The above evaluation not changing prior to induction *Anesthetic plan, risk benefits, alternative and complications discussed with patient/family; questions answered; patient/family understands, accepts and wishes to proceed. JARED HARMON MD Mar 29, 2019 18:12
[2019-03-29] MEDS ORDERED: PROPOFOL 20 ML ONE (18:21)
--- NOTE | 2019-03-29 18:28 | PAC ---
Date/Time of Note Date/Time of Note DATE: 03/29/19 TIME: 18:27 Post-Anesthesia Notes Post-Anesthesia Note Last documented vital signs Vital Signs Date Temp Pulse Resp B/P (MAP) Pulse Ox O2 O2 Flow FiO2 Time Delivery Rate 03/29/19 98.0 100 20 136/72 96 Room Air 18:25 (93) Activity: WNL Respiratory function: WNL Cardiovascular function: WNL Mental status: Baseline Pain reasonably controlled: Yes Hydration appropriate: Yes Nausea/Vomiting absent: Yes JARED HARMON MD Mar 29, 2019 18:28
[2019-03-29] MEDS: PANTOPRAZOLE 40 MG INJ IV SCH (20:16)
--- NOTE | 2019-03-29 22:43 | EN ---
Date/Time of Note Date/Time of Note DATE: 03/29/19 TIME: 22:36 Event Note Medicine Medicine Event Note Oncology consultation dictated. 53 y/o female admitted with c/o abd pain. States pain started [address] demonstrates thickened gastric wall with a large nodular mass involving the greater curvature. Esophagus and duodenum look normal. LFT's and markers nl except for minimal increase in CA 125. Possible diagnoses include gastric ca, GIST or gastric lymphoma. Thank You, Melissa Melgoza MD. MELISSA MELGOZA MD Mar 29, 2019 22:43
--- NOTE | 2019-03-29 23:17 | CONS ---
DATE OF ADMISSION: 03/28/2019 DATE OF CONSULTATION: REQUESTING PHYSICIAN: Dr. Abilio Barrett. REASON FOR CONSULTATION: Gastric malignancy. Dear Dr. Barrett: Thank you very much for asking me to see this very interesting and pleasant patient in oncologic cons ultation. HISTORY OF PRESENT ILLNESS: As you know, Ms. Lopez is a 53-year-old female who was admitted to [facility] on 03/28/2019. The patient at that time had been experiencing abdomina l pain for approximately 2 weeks. The patient states that this pain started rather suddenly. Mostly in the left mid upper abdomen. It does radiate across the abdomen. The patient states it was associated with abdominal distention. Denies nausea or vomiting. The mitch ent states that food intake did at times decrease the pain. At times, there also was, however, incre asing "gas." The patient states that she has had difficulties with constipation, but this has been a chronic probl em. There was no melena or hematochezia. The patient has had nausea and vomiting for several months in the past but did not have any specific reason for this. The patient states that pain was present all night and may have awakened her from sleep. It is occas ionally relieved by food intake. The patient is unable to quantitate whether she has lost any weight. The patient denies any fevers, chills, or night sweats. The abdominal pain has not been associated w ith any fevers or night sweats. On presentation to the emergency room at [facility], the patient had a white count of 8400 with an absolute neutrophil count of 5500, hemoglobin 11.3, hematocrit 34, MCV 83.1, MCH 27.6 , MCHC 33.2, and platelet count is 335,000. RDW is 15.8. Today, hemoglobin is 11.6, hematocrit 32.3. On admission, the sodium was 139, potassium 3.4, creatinine 0.64, BUN 11, calcium 9, total bilirubin 0.4, direct bilirubin 0, AST 29, ALT 21, alkaline phosphatase 99. Troponin is less than 0.012. Tota l protein 7.5, albumin is 4.1, lipase on admission was 99. CEA is less than 0.3, CA-99 is 10.1, and CA-125 is 42.1. Other studies on admission include a chest x-ray which showed no evidence for acute intrathoracic pat hology. The CT scan of the abdomen and pelvis, however, demonstrated thickening of the gastric body with a nodular border extending into the surrounding fat. There were also findings somewhat suspicio us for peritoneal carcinomatosis. There was no free fluid seen. No evidence of hydronephrosis. The re is possible mild compression of T12 vertebrae. A CT scan of the abdomen and pelvis revealed thickening of the gastric body. As noted, there was alo dence of possible peritoneal involvement. The patient did undergo an EGD today. There is no written report at this time, but the EGD does demo nstrate that the esophagus appeared normal. The stomach showed relatively normal gastric yanes. The mucosa of the fundus, body and antrum of the stomach were normal except for a large ulcerating neopl asm in the greater curvature of the body of the stomach. The lesion was at least 8 cm in greatest di mension. Multiple biopsies were taken. The pylorus appeared patent with no evidence of gastric outl et obstruction. Duodenum appeared normal as well. There were no ulcerations noted. PAST MEDICAL HISTORY: The patient's past history is, otherwise, relatively unremarkable. She states that she has not had any known medical problems in the past. No GI problems in the past. She has n ot had hematemesis, melena, or hematochezia. She has not undergone any GI procedures in the past. As mentioned, the patient has not noticed melena or hematochezia. Has had some constipation in the p ast. The patient is postmenopausal. She is 53 years of age. Last menstrual period was at 49. She has 3 children, 4th child was in utero. The patient did have 2 C-sections. FAMILY HISTORY: Unremarkable. The patient denies any history of hypertension; heart disease; diabet es; renal, hepatic, or pulmonary disease. PHYSICAL EXAMINATION: GENERAL: At this time reveals a well-developed but obese female who is in no acute distress. VITAL SIGNS: Temperature 98.8 orally, pulse 99 per minute and regular, respirations 18, blood pressu re 130/70, pulse oximetry is 98% on room air. SKIN: No ecchymosis, no petechiae or rashes. HEENT: Normocephalic. No evidence of trauma. Pupils equal, round, react to light and accommodation . Sclerae nonicteric. Oral mucosa is moist without lesions. Tongue is well papillated. There is n o gingival hyperplasia, no hypertrophy of Waldeyer ring, no mucosal telangiectasias. NECK: Supple. No jugular venous distention or thyroid enlargement. No carotid bruits. CHEST: Clear to auscultation and percussion. No rhonchi, wheezes, rales, or rubs. There is no pain on percussion of spine, sternum, clavicles, or ribs. HEART: Regular sinus rhythm. No S3, S4, or murmurs. No rubs. ABDOMEN: Obese. There is increased fullness on the left abdomen and some increased tenderness to to uch. Bowel sounds are active. There is no ascites. EXTREMITIES: Good range of motion. No clubbing, no edema or cyanosis. No palpable cords or Homans sign. NEUROLOGIC: Normal. The patient has been demonstrated to have a large gastric mass on the greater curvature of the stomac h. Biopsies have been taken and should yield a diagnosis. Apparently, this lesion was not ulcerated . As noted biopsies will help to direct future treatment and evaluation. Possibilities of course include a gastric adenocarcinoma. Other possibilities include a gastrointest inal stromal tumor (GIST) or even a GI lymphoma. I have taken the liberty of obtaining further studies which will include a serum protein electrophore sis, quantitative immunoglobulins, serum and urine immunofixation, LDH, beta 2 microglobulin, and a u mike acid. As noted any further evaluation will depend upon results of today's biopsies. Dictated By: MELISSA HAYES MD SR/NTS Conf#: [id number] DID#: [id number] CC: ABILIO BARRETT MD;*EndCC*
[2019-03-30] MEDS: PIPER-TAZO 3.375 GM IV (PMX) 100 ML IVPB SCH ×3 (00:17→13:34)
[2019-03-30 01:43] VITALS: BP 111/57; PULSE 81; RESP 18
[2019-03-30] MEDS: PANTOPRAZOLE 40 MG INJ IV SCH (06:00)
[2019-03-30 07:45] VITALS: BP 101/64; PULSE 85; RESP 16
[2019-03-30] MEDS: VANCOMYCIN 750 MG (PMX) 250 ML IVPB SCH (10:12)
--- NOTE | 2019-03-30 12:03 | CONS ---
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 Abdominal pain: Improved -Pain management PRN 3.Hypochromic anemia: -Monitor and transfuse as needed 4. Hypokalemia: -replete and monitor 5. Prediabetes: Hemoglobin A1c 6 -Weight management -Glucose optimization 6. Overweight BMI: 25 -diet and exercise optimization -encourage weight loss Thank you. Patient seen and examined in collaboration with Dr. Carlos Mauricio. Consultation Date/Type/Reason Admit Date/Time Date of Consultation: Mar 30, 2019 Type of Consult Surgical Reason for Consultation Gastric malignancy Requesting Provider: JENNA SYKES NP Date/Time of Note DATE: 03/30/19 TIME: 11:47 Hx of Present Illness Debbie Lopez is a 53-year-old woman with out known medical history who presented to the emergency department due to diffuse abdominal pain, strong and cramping in nature. Abdominal pain began approximately a few weeks ago which has steadily increased until the day of presentation. Associated symptoms include constipation. CT of the abdomen was performed showing thickening of the gastric body with slightly nodular border extending into surrounding fat as well as possible peritoneal carcinomatosis. EGD was performed which revealed large clearly malignant ulcerated mass at the greater curvature of mid body of the stomach. Patient denies any fevers, chills, recent weight loss, chest pain, shortness of breath, nausea, vomiting, seizures, rash. General surgery was asked to evaluate. 12 point review of systems was performed and is negative except as stated in HPI. Past Medical History Medical History: no pertinent history Home Meds Reported Medications Polyethylene Glycol* (Miralax*) 17 Gm Powd.pack, 8.5 GM PO DAILY, #30 PACKET 03/28/19 Medications Current Medications IV Flush (NS 3 ml) 3 ml PER PROTOCOL IV Last administered on 03/30/19at 10:11; Admin Dose 3 ML; Start 03/28/19 at 21:00 Ondansetron HCl (Zofran Inj) 4 mg Q6H PRN IV NAUSEA/VOMITING; Start 03/28/19 at 21:00 Acetaminophen (Tylenol Tab) 650 mg Q6H PRN PO .PAIN 1-3 OR TEMP; Start 03/28/19 at 21:00 Morphine Sulfate (morphine) 2 mg Q4H PRN IV .SEVERE PAIN 7-10 Last administered on 03/29/19at 14:33; Admin Dose 2 MG; Start 03/28/19 at 21:00 Docusate Sodium (Colace) 100 mg Q12H PRN PO .CONSTIPATION; Start 03/28/19 at 21:00 Bisacodyl (Dulcolax) 5 mg DAILY PRN PO .CONSTIPATION Last administered on 03/30/19at 10:16; Admin Dose 5 MG; Start 03/28/19 at 21:00 Vancomycin HCl (Vanco Iv Per Pharmacy) VANCOMYCIN PER PHARMACY PER PROTOCOL XX ; Start 03/28/19 at 21:00 Piperacillin Sod/ Tazobactam Sod 100 ml @ 200 mls/hr Q6 IVPB Last administered on 03/30/19at 06:01; Admin Dose 200 MLS/HR; Start 03/28/19 at 22:00 Pantoprazole (Protonix Iv) 40 mg BID@06,18 IV Last administered on 03/30/19at 06:00; Admin Dose 40 MG; Start 03/29/19 at 20:00 Vancomycin HCl 1.25 gm/Sodium Chloride 250 ml @ 83.333 mls/ hr Q12H IVPB ; Start 03/30/19 at 20:00 Allergies: Coded Allergies: No Known Allergy (Unverified , 03/28/19) Past Surgical History , tubal ligation Family History Significant Family History: no pertinent family hx Social History Alcohol Use: none Smoking Status: Never smoker Drug Use: none Exam/Review of Systems Exam Vitals Vital Signs Date Temp Pulse Resp B/P (MAP) Pulse Ox O2 O2 Flow FiO2 Time Delivery Rate 03/30/19 98.5 85 16 101/64 97 07:45 (76) 03/29/19 Room Air 19:04 Intake and Output 03/29/19 03/29/19 03/30/19 1515:00 23:00 07:00 IntakeIntake Total 250 ml 100 ml 450 ml BalanceBalance 250 ml 100 ml 450 ml Constitutional: alert, oriented Psych: nl mood/affect; No anxiety Head: normocephalic, atraumatic Eyes: nl conjunctiva, EOMI, nl lids, nl sclera ENMT: nl external ears & nose, nl lips & teeth, mucosa pink and moist Neck: supple, non-tender Respiratory: normal air movement; No congested cough Cardiovascular: regular rate and rhythm, nl pulses Gastrointestinal: soft, non-tender, distended (Minimal); No rebound or guarding Genitourinary - Female: nl external genitalia Musculoskeletal: nl extremities to inspection, nl gait and stance Extremities: normal pulses Neurological: nl mental status, nl speech, nl strength Skin: nl turgor; No rash or lesions Lymph: nl lymph nodes Results Result Diagram: 03/30/19 0614 03/30/19 0614 Results 24hrs Laboratory Tests Test 03/30/19 06:14 03/30/19 09:01 White Blood Count 7.2 Red Blood Count 3.91 L Hemoglobin 10.5 L Hematocrit 32.6 L Mean Corpuscular Volume 83.4 Mean Corpuscular Hemoglobin 26.9 L Mean Corpuscular Hemoglobin Concent 32.2 Red Cell Distribution Width 15.9 H Platelet Count 302 Mean Platelet Volume 10.0 Immature Granulocytes % 0.300 Neutrophils % 64.0 Lymphocytes % 25.6 Monocytes % 8.7 Eosinophils % 1.0 Basophils % 0.4 Nucleated Red Blood Cells % 0.0 Immature Granulocytes # 0.020 Neutrophils # 4.6 Lymphocytes # 1.8 Monocytes # 0.6 Eosinophils # 0.1 Basophils # 0.0 Nucleated Red Blood Cells # 0.0 Sodium Level 143 Potassium Level 3.3 L Chloride Level 107 Carbon Dioxide Level 29 Anion Gap 7 Blood Urea Nitrogen 6 L Creatinine 0.71 Est Glomerular Filtrat Rate mL/min > 60 Glucose Level 91 Uric Acid 1.9 L Calcium Level 8.7 Phosphorus Level 4.2 Magnesium Level 2.0 Total Bilirubin 0.7 Direct Bilirubin 0.00 Indirect Bilirubin 0.7 Aspartate Amino Transf (AST/SGOT) 20 Alanine Aminotransferase (ALT/SGPT) 17 Alkaline Phosphatase 81 Lactate Dehydrogenase 312 L Total Protein 6.2 Albumin 3.3 Globulin 2.90 Albumin/Globulin Ratio 1.13 Thyroid Stimulating Hormone (TSH) 2.890 Free Thyroxine 1.14 Immunoglobulin A 296 Immunoglobulin G 762 Immunoglobulin M 59 Vancomycin Level Trough < 5.0 L Medications Medication Current Medications IV Flush (NS 3 ml) 3 ml PER PROTOCOL IV Last administered on 03/30/19at 10:11; Admin Dose 3 ML; Start 03/28/19 at 21:00 Ondansetron HCl (Zofran Inj) 4 mg Q6H PRN IV NAUSEA/VOMITING; Start 03/28/19 at 21:00 Acetaminophen (Tylenol Tab) 650 mg Q6H PRN PO .PAIN 1-3 OR TEMP; Start 03/28/19 at 21:00 Morphine Sulfate (morphine) 2 mg Q4H PRN IV .SEVERE PAIN 7-10 Last administered on 03/29/19at 14:33; Admin Dose 2 MG; Start 03/28/19 at 21:00 Docusate Sodium (Colace) 100 mg Q12H PRN PO .CONSTIPATION; Start 03/28/19 at 21:00 Bisacodyl (Dulcolax) 5 mg DAILY PRN PO .CONSTIPATION Last administered on 03/30/19at 10:16; Admin Dose 5 MG; Start 03/28/19 at 21:00 Vancomycin HCl (Vanco Iv Per Pharmacy) VANCOMYCIN PER PHARMACY PER PROTOCOL XX ; Start 03/28/19 at 21:00 Piperacillin Sod/ Tazobactam Sod 100 ml @ 200 mls/hr Q6 IVPB Last administered on 03/30/19at 06:01; Admin Dose 200 MLS/HR; Start 03/28/19 at 22:00 Pantoprazole (Protonix Iv) 40 mg BID@06,18 IV Last administered on 03/30/19at 06:00; Admin Dose 40 MG; Start 03/29/19 at 20:00 Vancomycin HCl 1.25 gm/Sodium Chloride 250 ml @ 83.333 mls/ hr Q12H IVPB ; Start 03/30/19 at 20:00 RENA DUENAS NP Mar 30, 2019 12:02
--- NOTE | 2019-03-30 14:01 | PN ---
Date/Time of Note Date/Time of Note DATE: 03/30/19 TIME: 13:59 Assessment/Plan VTE Prophylaxis Risk score (from Ns)>0 risk: 1 SCD applied (from Ns): No SCD contraindicated: low risk/ambulating Pharmacological prophylaxis: NA/contraindicated Pharm contraindication: low risk/ambulating Lines/Catheters IV [facility]from [facility] Saline Lock Assessment/Plan Hospital Course SUBJECTIVE: Denies any abdominal pain. OBJECTIVE: Physical Exam General: Adequately build 53 year-old female lying in bed in no apparent distress. HEENT: Normocephalic, atraumatic. Eyes: Anicteric sclerae, conjunctivae clear. ENT: Nasal septum midline, oral mucosa moist. Neck supple, no JVD noticed. Respiratory: Bilaterally clear breath sounds. No use of accessory muscles of respiration. No adventitious breath sounds. Cardiovascular: S1, S2 heard. No murmurs or gallops. Abdomen: Soft and nondistended. Minimal epigastric tenderness. Bowel sounds positive in all 4 quadrants. Genitourinary: Deferred. Extremities: No cyanosis, no clubbing, no edema. Peripheral pulses palpable. Neurologic: Cranial nerves II through XII grossly intact. The patient is awake, alert, and oriented. Skin: Normal skin turgor. No skin rashes. Labs & Vitals per chart ASSESSMENT & PLAN 53-year-old female with no significant past medical he was referred by her medical clinic for diffuse abdominal pain, cramping anginal constipation was found to have underlying febrile illness, tachycardia, and lactic acidosis in the emergency room with CT of the abdomen showing thickening of the gastric body suspicious for peritoneal carcinomatosis and possible neoplasm, who was admitted to inpatient setting for further treatment and evaluation. 1. S/P sepsis with febrile illness, tachycardia, and lactic acidosis, present on admission. Etiology unclear. On empiric antimicrobials. Garcia cultures negative. DC antibiotics. 2. Thickening of the gastric body with possible underlying gastric neoplasm. Esophagogastroduodenoscopy on 03/29/2019 showed a clearly malignant ulcerated mass in the greater curvature. Pending pathology. Oncology following. 3. Prediabetes. Hemoglobin A1c 6.0. Monitor glycemic trends. 4. Normocytic anemia. Etiology unclear. Stool for OB x1-. Monitor H&H closely. The patient scheduled for esophagogastroduodenoscopy. 5. Fluids, electrolytes, and nutrition. Regular diet. 6. DVT prophylaxis. Bilateral SCDs. 7. Plan. Await final pathology. General surgery consult has been obtained. Discontinue antibiotics. The patient was seen in collaboration with Dr. Pryor. Result Diagram: 03/30/19 0614 03/30/19 0614 Results 24hrs Laboratory Tests Test 03/30/19 06:14 03/30/19 09:01 White Blood Count 7.2 Red Blood Count 3.91 L Hemoglobin 10.5 L Hematocrit 32.6 L Mean Corpuscular Volume 83.4 Mean Corpuscular Hemoglobin 26.9 L Mean Corpuscular Hemoglobin Concent 32.2 Red Cell Distribution Width 15.9 H Platelet Count 302 Mean Platelet Volume 10.0 Immature Granulocytes % 0.300 Neutrophils % 64.0 Lymphocytes % 25.6 Monocytes % 8.7 Eosinophils % 1.0 Basophils % 0.4 Nucleated Red Blood Cells % 0.0 Immature Granulocytes # 0.020 Neutrophils # 4.6 Lymphocytes # 1.8 Monocytes # 0.6 Eosinophils # 0.1 Basophils # 0.0 Nucleated Red Blood Cells # 0.0 Sodium Level 143 Potassium Level 3.3 L Chloride Level 107 Carbon Dioxide Level 29 Anion Gap 7 Blood Urea Nitrogen 6 L Creatinine 0.71 Est Glomerular Filtrat Rate mL/min > 60 Glucose Level 91 Uric Acid 1.9 L Calcium Level 8.7 Phosphorus Level 4.2 Magnesium Level 2.0 Total Bilirubin 0.7 Direct Bilirubin 0.00 Indirect Bilirubin 0.7 Aspartate Amino Transf (AST/SGOT) 20 Alanine Aminotransferase (ALT/SGPT) 17 Alkaline Phosphatase 81 Lactate Dehydrogenase 312 L Total Protein 6.2 Albumin 3.3 Globulin 2.90 Albumin/Globulin Ratio 1.13 Thyroid Stimulating Hormone (TSH) 2.890 Free Thyroxine 1.14 Immunoglobulin A 296 Immunoglobulin G 762 Immunoglobulin M 59 Vancomycin Level Trough < 5.0 L Exam/Review of Systems Exam Vitals Vital Signs Date Temp Pulse Resp B/P (MAP) Pulse Ox O2 O2 Flow FiO2 Time Delivery Rate 03/30/19 98.5 85 16 101/64 97 07:45 (76) 03/29/19 Room Air 19:04 Intake and Output 03/29/19 03/29/19 03/30/19 1515:00 23:00 07:00 IntakeIntake Total 250 ml 100 ml 450 ml BalanceBalance 250 ml 100 ml 450 ml Results Results 24hrs Laboratory Tests Test 03/30/19 06:14 03/30/19 09:01 White Blood Count 7.2 Red Blood Count 3.91 L Hemoglobin 10.5 L Hematocrit 32.6 L Mean Corpuscular Volume 83.4 Mean Corpuscular Hemoglobin 26.9 L Mean Corpuscular Hemoglobin Concent 32.2 Red Cell Distribution Width 15.9 H Platelet Count 302 Mean Platelet Volume 10.0 Immature Granulocytes % 0.300 Neutrophils % 64.0 Lymphocytes % 25.6 Monocytes % 8.7 Eosinophils % 1.0 Basophils % 0.4 Nucleated Red Blood Cells % 0.0 Immature Granulocytes # 0.020 Neutrophils # 4.6 Lymphocytes # 1.8 Monocytes # 0.6 Eosinophils # 0.1 Basophils # 0.0 Nucleated Red Blood Cells # 0.0 Sodium Level 143 Potassium Level 3.3 L Chloride Level 107 Carbon Dioxide Level 29 Anion Gap 7 Blood Urea Nitrogen 6 L Creatinine 0.71 Est Glomerular Filtrat Rate mL/min > 60 Glucose Level 91 Uric Acid 1.9 L Calcium Level 8.7 Phosphorus Level 4.2 Magnesium Level 2.0 Total Bilirubin 0.7 Direct Bilirubin 0.00 Indirect Bilirubin 0.7 Aspartate Amino Transf (AST/SGOT) 20 Alanine Aminotransferase (ALT/SGPT) 17 Alkaline Phosphatase 81 Lactate Dehydrogenase 312 L Total Protein 6.2 Albumin 3.3 Globulin 2.90 Albumin/Globulin Ratio 1.13 Thyroid Stimulating Hormone (TSH) 2.890 Free Thyroxine 1.14 Immunoglobulin A 296 Immunoglobulin G 762 Immunoglobulin M 59 Vancomycin Level Trough < 5.0 L Medications Medication Current Medications IV Flush (NS 3 ml) 3 ml PER PROTOCOL IV Last administered on 03/30/19at 10:11; Admin Dose 3 ML; Start 03/28/19 at 21:00 Ondansetron HCl (Zofran Inj) 4 mg Q6H PRN IV NAUSEA/VOMITING; Start 03/28/19 at 21:00 Acetaminophen (Tylenol Tab) 650 mg Q6H PRN PO .PAIN 1-3 OR TEMP; Start 03/28/19 at 21:00 Morphine Sulfate (morphine) 2 mg Q4H PRN IV .SEVERE PAIN 7-10 Last administered on 03/29/19at 14:33; Admin Dose 2 MG; Start 03/28/19 at 21:00 Docusate Sodium (Colace) 100 mg Q12H PRN PO .CONSTIPATION; Start 03/28/19 at 21:00 Bisacodyl (Dulcolax) 5 mg DAILY PRN PO .CONSTIPATION Last administered on at 10:16; Admin Dose 5 MG; Start 03/28/19 at 21:00 Vancomycin HCl (Vanco Iv Per Pharmacy) VANCOMYCIN PER PHARMACY PER PROTOCOL XX ; Start 03/28/19 at 21:00 Piperacillin Sod/ Tazobactam Sod 100 ml @ 200 mls/hr Q6 IVPB Last administered on 03/30/19at 13:34; Admin Dose 200 MLS/HR; Start 03/28/19 at 22:00 Pantoprazole (Protonix Iv) 40 mg BID@06,18 IV Last administered on 03/30/19at 06:00; Admin Dose 40 MG; Start 03/29/19 at 20:00 Vancomycin HCl 1.25 gm/Sodium Chloride 250 ml @ 83.333 mls/ hr Q12H IVPB ; Start 03/30/19 at 20:00 JENNA SYKES NP Mar 30, 2019 14:01
--- NOTE | 2019-03-30 14:57 | PN ---
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 Soto Subjective: Course reviewed with nursing staff Patient interviewed and examined All labs, imaging and other results reviewed The patient currently resting in bed, no over night events Pt currently denies n/v or abd pain- rosario diet well. I discussed results of EGD findings- bx currently pending Exam PHYSICAL EXAMINATION: GENERAL: Alert & oriented x 3, in no acute distress SKIN: No lesions HEAD: Normocephalic, atraumatic, no tenderness. EYES: Pupils equal reactive to light, no discharge. EARS/NOSE AND THROAT: Ears normal, nose normal, oropharynx normal. NECK: Supple, no masses CHEST: Inspection within normal limits. CARDIOVASCULAR: Heart: Regular rate and rhythm RESPIRATORY: Lungs clear to auscultation GASTROINTESTINAL AND LIVER: Abdomen: Soft, non tenderness, non-distended, no hernias, no masses, no organomegaly, no ascites, no guarding, no rebound tenderness, normoactive bowel sounds. Rectal: Deferred. EXTREMITIES: No cyanosis, clubbing or edema. Result Diagram: 03/30/1914 03/30/1914 Results 24hrs Laboratory Tests Test 03/30/19 06:14 03/30/19 09:01 White Blood Count 7.2 Red Blood Count 3.91 L Hemoglobin 10.5 L Hematocrit 32.6 L Mean Corpuscular Volume 83.4 Mean Corpuscular Hemoglobin 26.9 L Mean Corpuscular Hemoglobin Concent 32.2 Red Cell Distribution Width 15.9 H Platelet Count 302 Mean Platelet Volume 10.0 Immature Granulocytes % 0.300 Neutrophils % 64.0 Lymphocytes % 25.6 Monocytes % 8.7 Eosinophils % 1.0 Basophils % 0.4 Nucleated Red Blood Cells % 0.0 Immature Granulocytes # 0.020 Neutrophils # 4.6 Lymphocytes # 1.8 Monocytes # 0.6 Eosinophils # 0.1 Basophils # 0.0 Nucleated Red Blood Cells # 0.0 Sodium Level 143 Potassium Level 3.3 L Chloride Level 107 Carbon Dioxide Level 29 Anion Gap 7 Blood Urea Nitrogen 6 L Creatinine 0.71 Est Glomerular Filtrat Rate mL/min > 60 Glucose Level 91 Uric Acid 1.9 L Calcium Level 8.7 Phosphorus Level 4.2 Magnesium Level 2.0 Total Bilirubin 0.7 Direct Bilirubin 0.00 Indirect Bilirubin 0.7 Aspartate Amino Transf (AST/SGOT) 20 Alanine Aminotransferase (ALT/SGPT) 17 Alkaline Phosphatase 81 Lactate Dehydrogenase 312 L Total Protein 6.2 Albumin 3.3 Globulin 2.90 Albumin/Globulin Ratio 1.13 Thyroid Stimulating Hormone (TSH) 2.890 Free Thyroxine 1.14 Immunoglobulin A 296 Immunoglobulin G 762 Immunoglobulin M 59 Vancomycin Level Trough < 5.0 L Exam/Review of Systems Exam Vitals Vital Signs Date Temp Pulse Resp B/P (MAP) Pulse Ox O2 O2 Flow FiO2 Time Delivery Rate 03/30/19 98.5 85 16 101/64 97 07:45 (76) 03/29/19 Room Air 19:04 Intake and Output 03/29/19 03/29/19 03/30/19 1515:00 23:00 07:00 IntakeIntake Total 250 ml 100 ml 450 ml BalanceBalance 250 ml 100 ml 450 ml Results Results 24hrs Laboratory Tests Test 03/30/19 06:14 03/30/19 09:01 White Blood Count 7.2 Red Blood Count 3.91 L Hemoglobin 10.5 L Hematocrit 32.6 L Mean Corpuscular Volume 83.4 Mean Corpuscular Hemoglobin 26.9 L Mean Corpuscular Hemoglobin Concent 32.2 Red Cell Distribution Width 15.9 H Platelet Count 302 Mean Platelet Volume 10.0 Immature Granulocytes % 0.300 Neutrophils % 64.0 Lymphocytes % 25.6 Monocytes % 8.7 Eosinophils % 1.0 Basophils % 0.4 Nucleated Red Blood Cells % 0.0 Immature Granulocytes # 0.020 Neutrophils # 4.6 Lymphocytes # 1.8 Monocytes # 0.6 Eosinophils # 0.1 Basophils # 0.0 Nucleated Red Blood Cells # 0.0 Sodium Level 143 Potassium Level 3.3 L Chloride Level 107 Carbon Dioxide Level 29 Anion Gap 7 Blood Urea Nitrogen 6 L Creatinine 0.71 Est Glomerular Filtrat Rate mL/min > 60 Glucose Level 91 Uric Acid 1.9 L Calcium Level 8.7 Phosphorus Level 4.2 Magnesium Level 2.0 Total Bilirubin 0.7 Direct Bilirubin 0.00 Indirect Bilirubin 0.7 Aspartate Amino Transf (AST/SGOT) 20 Alanine Aminotransferase (ALT/SGPT) 17 Alkaline Phosphatase 81 Lactate Dehydrogenase 312 L Total Protein 6.2 Albumin 3.3 Globulin 2.90 Albumin/Globulin Ratio 1.13 Thyroid Stimulating Hormone (TSH) 2.890 Free Thyroxine 1.14 Immunoglobulin A 296 Immunoglobulin G 762 Immunoglobulin M 59 Vancomycin Level Trough < 5.0 L Medications Medication Current Medications IV Flush (NS 3 ml) 3 ml PER PROTOCOL IV Last administered on 03/30/19at 10:11; Admin Dose 3 ML; Start 03/28/19 at 21:00 Ondansetron HCl (Zofran Inj) 4 mg Q6H PRN IV NAUSEA/VOMITING; Start 03/28/19 at 21:00 Acetaminophen (Tylenol Tab) 650 mg Q6H PRN PO .PAIN 1-3 OR TEMP; Start 03/28/19 at 21:00 Morphine Sulfate (morphine) 2 mg Q4H PRN IV .SEVERE PAIN 7-10 Last administered on 03/29/19at 14:33; Admin Dose 2 MG; Start 03/28/19 at 21:00 Docusate Sodium (Colace) 100 mg Q12H PRN PO .CONSTIPATION; Start 03/28/19 at 21:00 Bisacodyl (Dulcolax) 5 mg DAILY PRN PO .CONSTIPATION Last administered on 03/30/19at 10:16; Admin Dose 5 MG; Start 03/28/19 at 21:00 Pantoprazole (Protonix Iv) 40 mg BID@,18 IV Last administered on 03/30/19at 06:00; Admin Dose 40 MG; Start 03/29/19 at 20:00 Potassium Chloride (Klor-Con 10) 30 meq ONCE ONCE PO ; Start 03/30/19 at 15:00; Stop 03/30/19 at 15:01 EB CONTRERAS Mar 30, 2019 14:56
[2019-03-30] MEDS ORDERED: POTASSIUM CHLORIDE (SR) 10 MEQ TAB PO ONE (15:00)
[2019-03-30 15:14] VITALS: BP 111/51; PULSE 85; RESP 16
[2019-03-30] MEDS: PANTOPRAZOLE (EC) 40 MG TAB PO SCH (18:14)
[2019-03-30] MEDS: morphine 2 MG INJ IV PRN (18:59)
--- NOTE | 2019-03-30 19:27 | PN ---
DATE: 03/30/2019 SUBJECTIVE: The patient has no new complaints or findings. Does still complain of some mid abdomina l pain. No nausea or vomiting. OBJECTIVE: GENERAL: The patient is a well-developed, mildly obese female in no acute distress. VITAL SIGNS: Temperature 98.6, pulse 85 per minute and regular, respirations 16, blood pressure 111/ 51, pulse oximetry 98% on room air. SKIN: No ecchymosis, no petechiae or rashes. HEENT: Normocephalic. No evidence of trauma. Pupils equal, round, react to light and accommodation . Sclerae nonicteric. Oral mucosa is moist without lesions. Tongue is well papillated. No gingiva l hyperplasia, no hypertrophy of Waldeyer ring, no mucosal telangiectasias. NECK: Supple. No jugular venous distention or thyroid enlargement. No carotid bruits. CHEST: Clear to auscultation and percussion. No rhonchi, wheezes, rales or rubs. NODES: No palpable adenopathy. HEART: Regular sinus rhythm, no S3, S4 or murmurs. ABDOMEN: Mildly obese. There is fullness and some tenderness on the left mid and upper abdomen. No palpable masses, no rebound tenderness. There is no succussion splash. EXTREMITIES: No clubbing. No edema or cyanosis. No palpable cords or Homans sign. NEUROLOGIC: Normal. LABORATORY DATA: White count is 7200, hemoglobin is 10.5, hematocrit 32.6 and platelet count is 302, 000. LDH is 312. Uric acid is only 1.9. Quantitative immunoglobulins are normal with IgG of 762, I gA 296, IgM is 59. At least stool for occult blood is negative by once. PATHOLOGY: From biopsy of gastric mass still pending. ASSESSMENT: 1. Abdominal pain secondary to large gastric mass, rule out gastroesophageal carcinoma, rule out gas trointestinal stromal tumor, rule out gastric lymphoma. RESULTS: Should be available within the next 24 hours. This of course will determine whether there are further tests to be done or if therapy may be initiated depending on the histology. Dictated By: MELISSA HAYES MD SR/NTS Conf#: [id number] DID#: [id number] CC: BAO BARRETT MD;*EndCC*
[2019-03-30] MEDS ORDERED: VANCOMYCIN HCL 1.25 GM in SOD CHLORIDE 0.9% 250 ML IVPB SCH (20:00)
[2019-03-30 20:24] VITALS: BP 117/70; PULSE 88; RESP 17
[2019-03-31 01:39] VITALS: BP 106/54; PULSE 82; RESP 17
[2019-03-31] MEDS: PANTOPRAZOLE (EC) 40 MG TAB PO SCH ×2 (05:51→18:04)
[2019-03-31 08:17] VITALS: BP 125/67; PULSE 80; RESP 18
--- NOTE | 2019-03-31 12:32 | PN ---
Date/Time of Note Date/Time of Note DATE: 03/31/19 TIME: 12:30 Assessment/Plan VTE Prophylaxis Risk score (from Ns)>0 risk: 1 SCD applied (from Ns): No SCD contraindicated: other Pharmacological prophylaxis: NA/contraindicated Pharm contraindication: low risk/ambulating Lines/Catheters IV Catheter Type (from [facility]): Saline Lock Urinary Cath still in place: No Assessment/Plan Hospital Course SUBJECTIVE: Denies any abdominal pain. OBJECTIVE: Physical Exam General: Adequately build 53 year-old female lying in bed in no apparent distress. HEENT: Normocephalic, atraumatic. Eyes: Anicteric sclerae, conjunctivae clear. ENT: Nasal septum midline, oral mucosa moist. Neck supple, no JVD noticed. Respiratory: Bilaterally clear breath sounds. No use of accessory muscles of respiration. No adventitious breath sounds. Cardiovascular: S1, S2 heard. No murmurs or gallops. Abdomen: Soft and nondistended. Minimal epigastric tenderness. Bowel sounds positive in all 4 quadrants. Genitourinary: Deferred. Extremities: No cyanosis, no clubbing, no edema. Peripheral pulses palpable. Neurologic: Cranial nerves II through XII grossly intact. The patient is awake, alert, and oriented. Skin: Normal skin turgor. No skin rashes. Labs & Vitals per chart ASSESSMENT & PLAN 53-year-old female with no significant past medical he was referred by her medical clinic for diffuse abdominal pain, cramping anginal constipation was found to have underlying febrile illness, tachycardia, and lactic acidosis in the emergency room with CT of the abdomen showing thickening of the gastric body suspicious for peritoneal carcinomatosis and possible neoplasm, who was admitted to inpatient setting for further treatment and evaluation. 1. S/P sepsis with febrile illness, tachycardia, and lactic acidosis, present on admission. Etiology unclear. On empiric antimicrobials. Garcia cultures negative. DCed antibiotics. 2. Thickening of the gastric body with possible underlying gastric neoplasm. Esophagogastroduodenoscopy on 03/29/2019 showed a clearly malignant ulcerated mass in the greater curvature. Pending pathology. Oncology following. 3. Prediabetes. Hemoglobin A1c 6.0. Monitor glycemic trends. 4. Normocytic anemia. Etiology unclear. Stool for OB x1-. Monitor H&H closely. 5. Fluids, electrolytes, and nutrition. Regular diet. 6. DVT prophylaxis. Bilateral SCDs. 7. Plan. Await final pathology. The patient was seen in collaboration with Dr. Pryor. Result Diagram: 03/31/19 0541 03/31/19 0540 Results 24hrs Laboratory Tests Test 03/31/19 05:40 03/31/19 05:41 Sodium Level 145 H Potassium Level 4.3 Chloride Level 108 Carbon Dioxide Level 31 Anion Gap 6 Blood Urea Nitrogen 6 L Creatinine 0.62 Est Glomerular Filtrat Rate mL/min > 60 Glucose Level 111 Calcium Level 9.0 White Blood Count 6.7 Red Blood Count 4.12 L Hemoglobin 11.2 L Hematocrit 34.2 L Mean Corpuscular Volume 83.0 Mean Corpuscular Hemoglobin 27.2 L Mean Corpuscular Hemoglobin Concent 32.7 Red Cell Distribution Width 15.9 H Platelet Count 333 Mean Platelet Volume 10.1 Immature Granulocytes % 0.100 Neutrophils % 66.7 Lymphocytes % 26.1 Monocytes % 5.8 Eosinophils % 0.9 Basophils % 0.4 Nucleated Red Blood Cells % 0.0 Immature Granulocytes # 0.010 Neutrophils # 4.4 Lymphocytes # 1.7 Monocytes # 0.4 Eosinophils # 0.1 Basophils # 0.0 Nucleated Red Blood Cells # 0.0 Phosphorus Level 4.5 Magnesium Level 2.2 Exam/Review of Systems Exam Vitals Vital Signs Date Temp Pulse Resp B/P (MAP) Pulse Ox O2 O2 Flow FiO2 Time Delivery Rate 03/31/19 99.1 80 18 125/67 97 08:17 (86) 03/29/19 Room Air 19:04 Intake and Output 03/30/19 03/30/19 03/31/19 1515:00 23:00 07:00 IntakeIntake Total 1430 ml 480 ml BalanceBalance 1430 ml 480 ml Results Results 24hrs Laboratory Tests Test 03/31/19 05:40 03/31/19 05:41 Sodium Level 145 H Potassium Level 4.3 Chloride Level 108 Carbon Dioxide Level 31 Anion Gap 6 Blood Urea Nitrogen 6 L Creatinine 0.62 Est Glomerular Filtrat Rate mL/min > 60 Glucose Level 111 Calcium Level 9.0 White Blood Count 6.7 Red Blood Count 4.12 L Hemoglobin 11.2 L Hematocrit 34.2 L Mean Corpuscular Volume 83.0 Mean Corpuscular Hemoglobin 27.2 L Mean Corpuscular Hemoglobin Concent 32.7 Red Cell Distribution Width 15.9 H Platelet Count 333 Mean Platelet Volume 10.1 Immature Granulocytes % 0.100 Neutrophils % 66.7 Lymphocytes % 26.1 Monocytes % 5.8 Eosinophils % 0.9 Basophils % 0.4 Nucleated Red Blood Cells % 0.0 Immature Granulocytes # 0.010 Neutrophils # 4.4 Lymphocytes # 1.7 Monocytes # 0.4 Eosinophils # 0.1 Basophils # 0.0 Nucleated Red Blood Cells # 0.0 Phosphorus Level 4.5 Magnesium Level 2.2 Medications Medication Current Medications IV Flush (NS 3 ml) 3 ml PER PROTOCOL IV Last administered on 03/30/19 10:11; Admin Dose 3 ML; Start 03/28/19 at 21:00 Ondansetron HCl (Zofran Inj) 4 mg Q6H PRN IV NAUSEA/VOMITING; Start 03/28/19 at 21:00 Acetaminophen (Tylenol Tab) 650 mg Q6H PRN PO .PAIN 1-3 OR TEMP; Start 03/28/19 at 21:00 Morphine Sulfate (morphine) 2 mg Q4H PRN IV .SEVERE PAIN 7-10 Last administered on 03/30/19at 18:59; Admin Dose 2 MG; Start 03/28/19 at 21:00 Docusate Sodium (Colace) 100 mg Q12H PRN PO .CONSTIPATION; Start 03/28/19 at 21:00 Bisacodyl (Dulcolax) 5 mg DAILY PRN PO .CONSTIPATION Last administered on 03/30/19 10:16; Admin Dose 5 MG; Start 03/28/19 at 21:00 Pantoprazole (Protonix Tab) 40 mg BID@06,18 PO Last administered on 03/31/19 05:51; Admin Dose 40 MG; Start 03/30/19 at 18:00 JENNA SYKES NP Mar 31, 2019 12:32
--- NOTE | 2019-03-31 13:50 | PN ---
Date/Time of Note Date/Time of Note DATE: 03/31/19 TIME: 13:47 Assessment/Plan Lines/Catheters IV Catheter Type (from Nrs): Saline Lock Gaytan in Place (from Nrs): No Assessment/Plan Chief Complaint/Hosp Course 1.Large malignant ulcerated mass in mid body of stomach with peritoneal involvement -Follow biopsy results -Oncology -No emergent surgical intervention at this time. Will need close follow-up with oncology to determine neoadjuvant treatment 2. Abdominal pain: Improved -Pain management PRN 3.Hypochromic anemia: -Monitor and transfuse as needed 4. Hypokalemia: -replete and monitor 5. Prediabetes: Hemoglobin A1c 6 -Weight management -Glucose optimization 6. Overweight BMI: 25 -diet and exercise optimization -encourage weight loss Thank you. Patient seen and examined in collaboration with Dr. Carlos Mauricio. Subjective 24 Hr Interval Summary Feels well. No fevers, chills, sob, congested cough, cp, palpitations, jhaveri, dizziness, nausea, vomiting, diarrhea, dysuria. Tolerating diet Exam/Review of Systems Vital Signs Vitals Vital Signs Date Temp Pulse Resp B/P (MAP) Pulse Ox O2 O2 Flow FiO2 Time Delivery Rate 03/31/19 99.1 80 18 125/67 97 08:17 (86) 03/29/19 Room Air 19:04 Intake and Output 03/30/19 03/30/19 03/31/19 1515:00 23:00 07:00 IntakeIntake Total 1430 ml 480 ml BalanceBalance 1430 ml 480 ml Exam Free Text/Dictation Constitutional: alert, oriented Psych: nl mood/affect; No anxiety Head: normocephalic, atraumatic Eyes: nl conjunctiva, EOMI, nl lids, nl sclera ENMT: nl external ears & nose, nl lips & teeth, mucosa pink and moist Neck: supple, non-tender Respiratory: normal air movement; No congested cough Cardiovascular: regular rate and rhythm, nl pulses Gastrointestinal: soft, non-tender, distended (Minimal); No rebound or guarding Genitourinary - Female: nl external genitalia Musculoskeletal: nl extremities to inspection, nl gait and stance Extremities: normal pulses Neurological: nl mental status, nl speech, nl strength Skin: nl turgor; No rash or lesions Lymph: nl lymph nodes Results Result Diagram: 03/31/19 0541 03/31/19 0540 RENA DUENAS NP Mar 31, 2019 13:50
[2019-03-31 14:43] VITALS: BP 125/69; PULSE 74; RESP 18
[2019-03-31 19:38] VITALS: BP 132/78; PULSE 77; RESP 18
[2019-04-01 02:06] VITALS: BP 104/53; PULSE 79; RESP 17
[2019-04-01] MEDS: PANTOPRAZOLE (EC) 40 MG TAB PO SCH ×2 (06:04→18:15)
[2019-04-01 07:59] VITALS: BP 125/71; PULSE 81; RESP 18
--- NOTE | 2019-04-01 11:43 | PN ---
Date/Time of Note Date/Time of Note DATE: 04/01/19 TIME: 11:41 Assessment/Plan VTE Prophylaxis Risk score (from Ns)>0 risk: 1 SCD applied (from Ns): No SCD contraindicated: other Pharmacological prophylaxis: NA/contraindicated Pharm contraindication: low risk/ambulating Lines/Catheters IV Catheter Type (from [facility]): Saline Lock Urinary Cath still in place: No Assessment/Plan Hospital Course SUBJECTIVE: Denies any abdominal pain. OBJECTIVE: Physical Exam General: Adequately build 53 year-old female lying in bed in no apparent distress. HEENT: Normocephalic, atraumatic. Eyes: Anicteric sclerae, conjunctivae clear. ENT: Nasal septum midline, oral mucosa moist. Neck supple, no JVD noticed. Respiratory: Bilaterally clear breath sounds. No use of accessory muscles of respiration. No adventitious breath sounds. Cardiovascular: S1, S2 heard. No murmurs or gallops. Abdomen: Soft and nondistended. Minimal epigastric tenderness. Bowel sounds positive in all 4 quadrants. Genitourinary: Deferred. Extremities: No cyanosis, no clubbing, no edema. Peripheral pulses palpable. Neurologic: Cranial nerves II through XII grossly intact. The patient is awake, alert, and oriented. Skin: Normal skin turgor. No skin rashes. Labs & Vitals per chart ASSESSMENT & PLAN 53-year-old female with no significant past medical he was referred by her medical clinic for diffuse abdominal pain, cramping anginal constipation was found to have underlying febrile illness, tachycardia, and lactic acidosis in the emergency room with CT of the abdomen showing thickening of the gastric body suspicious for peritoneal carcinomatosis and possible neoplasm, who was admitted to inpatient setting for further treatment and evaluation. 1. S/P sepsis with febrile illness, tachycardia, and lactic acidosis, present on admission. Etiology unclear. On empiric antimicrobials. Garcia cultures negative. Antibiotics discontinued. 2. Gastric adenocarcinoma. Newly diagnosed. Being followed by oncology, gastroenterology , and surgery. No evidence of any obstruction. Treatment plan will be based on final pathology results. 3. Prediabetes. Hemoglobin A1c 6.0. Monitor glycemic trends. 4. Normocytic anemia. Etiology unclear. Stool for OB x1-. Monitor H&H closely. 5. Fluids, electrolytes, and nutrition. Regular diet. 6. DVT prophylaxis. Bilateral SCDs. 7. Plan. Await final pathology. Await further recommendations from consultants. The patient was seen in collaboration with Dr. Pryor. Result Diagram: 03/31/19 0541 03/31/19 0540 Exam/Review of Systems Exam Vitals Vital Signs Date Temp Pulse Resp B/P (MAP) Pulse Ox O2 O2 Flow FiO2 Time Delivery Rate 04/01/19 99.3 81 18 125/71 97 07:59 (89) 03/29/19 Room Air 19:04 Intake and Output 03/31/19 03/31/19 04/01/19 1515:00 23:00 07:00 IntakeIntake Total 1250 ml BalanceBalance 1250 ml Medications Medication Current Medications IV Flush (NS 3 ml) 3 ml PER PROTOCOL IV Last administered on 03/30/19at 10:11; Admin Dose 3 ML; Start 03/28/19 at 21:00 Ondansetron HCl (Zofran Inj) 4 mg Q6H PRN IV NAUSEA/VOMITING; Start 03/28/19 at 21:00 Acetaminophen (Tylenol Tab) 650 mg Q6H PRN PO .PAIN 1-3 OR TEMP; Start 03/28/19 at 21:00 Morphine Sulfate (morphine) 2 mg Q4H PRN IV .SEVERE PAIN 7-10 Last administered on 03/30/19at 18:59; Admin Dose 2 MG; Start 03/28/19 at 21:00 Docusate Sodium (Colace) 100 mg Q12H PRN PO .CONSTIPATION; Start 03/28/19 at 21:00 Bisacodyl (Dulcolax) 5 mg DAILY PRN PO .CONSTIPATION Last administered on 03/30/19at 10:16; Admin Dose 5 MG; Start 03/28/19 at 21:00 Pantoprazole (Protonix Tab) 40 mg BID@18 PO Last administered on 04/01/19at 06:04; Admin Dose 40 MG; Start 03/30/19 at 18:00 JENNA SYKES NP Apr 01, 2019 11:43
--- NOTE | 2019-04-01 12:25 | PN ---
Date/Time of Note Date/Time of Note DATE: 04/01/19 TIME: 12:16 Assessment/Plan VTE Prophylaxis Risk score (from Ns)>0 risk: 1 SCD applied (from [facility] [place]): No SCD contraindicated: low risk/ambulating Pharmacological prophylaxis: NA/contraindicated Pharm contraindication: low risk/ambulating Lines/Catheters IV Catheter Type (from [facility]): Saline Lock Urinary Cath still in place: No Assessment/Plan Assessment/Plan Pathology report is not final yet but shows an adenocarcinoma consistent with gastric cancer. I spoke to pathology and a HER-2 is ordered on the material. The CT has shown nodularity in the peritoneum suspicious for peritoneal carcinomatosis. I think that surgery would be appropriate both to remove the gastric mass, which is sizable, and to find out if there is already peritoneal spread. Neoadjuvant chemotherapy is a consideration in gastric cancer but the point of that is to prevent metastases, which seem likely to have already occurred. I also expect that chemotherapy would be given postoperatively but the question of what program would be dependent upon the HER-2 status. I spoke to Mr. Ybarra, LAURI, and also to the pt/son. The patient seem stable and ready for surgery if it can be arranged. Result Diagram: 03/31/19 0541 03/31/19 0540 Subjective 24 Hr Interval Summary Free Text/Dictation Pt is comfortable and lying in bed. No abdominal pain now. Exam/Review of Systems Exam Vitals Vital Signs Date Temp Pulse Resp B/P (MAP) Pulse Ox O2 O2 Flow FiO2 Time Delivery Rate 04/01/19 99.3 81 18 125/71 97 07:59 (89) 03/29/19 Room Air 19:04 Intake and Output 03/31/19 03/31/19 04/01/19 1515:00 23:00 07:00 IntakeIntake Total 1250 ml BalanceBalance 1250 ml Constitutional: alert, oriented Head: normocephalic Eyes: nl conjunctiva ENMT: nl external ears & nose Neck: supple Respiratory: clear to auscultation Cardiovascular: regular rate and rhythm Gastrointestinal: soft, nl liver, spleen, non-tender Extremities: normal pulses Lymph: nl lymph nodes Medications Medication Current Medications IV Flush (NS 3 ml) 3 ml PER PROTOCOL IV Last administered on 03/30/19at 10:11; Admin Dose 3 ML; Start 03/28/19 at 21:00 Ondansetron HCl (Zofran Inj) 4 mg Q6H PRN IV NAUSEA/VOMITING; Start 03/28/19 at 21:00 Acetaminophen (Tylenol Tab) 650 mg Q6H PRN PO .PAIN 1-3 OR TEMP; Start 03/28/19 at 21:00 Morphine Sulfate (morphine) 2 mg Q4H PRN IV .SEVERE PAIN 7-10 Last administered on 03/30/19at 18:59; Admin Dose 2 MG; Start 03/28/19 at 21:00 Docusate Sodium (Colace) 100 mg Q12H PRN PO .CONSTIPATION; Start 03/28/19 at 21:00 Bisacodyl (Dulcolax) 5 mg DAILY PRN PO .CONSTIPATION Last administered on 03/30/19at 10:16; Admin Dose 5 MG; Start 03/28/19 at 21:00 Pantoprazole (Protonix Tab) 40 mg BID@,18 PO Last administered on 04/01/19 06:04; Admin Dose 40 MG; Start 03/30/19 at 18:00 MICHELL CASTAÑEDA MD Apr 01, 2019 12:25
[2019-04-01 15:04] VITALS: BP 115/67; PULSE 91
--- NOTE | 2019-04-01 16:24 | PN ---
Date/Time of Note Date/Time of Note DATE: 04/01/19 TIME: 16:15 Assessment/Plan Lines/Catheters IV Catheter Type (from Nrs): Saline Lock Gaytan in Place (from Nrsg): No Assessment/Plan Chief Complaint/Hosp Course 1. 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 Bx noted. -Patient still needs outpatient PET scan and Endoscopic Ultrasound. -Based on findings, will benefit from systemic chemo tx prior to possible surgical intervention 2. Abdominal pain: Improved -Pain management PRN 3. Hypochromic anemia 2nd above -Monitor and transfuse as needed 4. Prediabetes: Hemoglobin A1c 6 -Weight management -Glucose optimization 5. BMI: 25 -diet and exercise optimization Thank you, Subjective 24 Hr Interval Summary Feels well. No fevers, chills, sob, congested cough, cp, palpitations, jhaveri, dizziness, nausea, vomiting, diarrhea, dysuria. Tolerating diet. Bx noted. Oncology input noted. Exam/Review of Systems Vital Signs Vitals Vital Signs Date Temp Pulse Resp B/P (MAP) Pulse Ox O2 O2 Flow FiO2 Time Delivery Rate 04/01/19 98.8 91 115/67 97 15:04 (83) 04/01/19 18 07:59 03/29/19 Room Air 19:04 Intake and Output 03/31/19 03/31/19 04/01/19 1515:00 23:00 07:00 IntakeIntake Total 1250 ml BalanceBalance 1250 ml Exam Free Text/Dictation Constitutional: alert, oriented Psych: nl mood/affect; No anxiety Head: normocephalic, atraumatic Eyes: nl conjunctiva, EOMI, nl lids, nl sclera ENMT: nl external ears & nose, nl lips & teeth, mucosa pink and moist Neck: supple, non-tender Respiratory: normal air movement; No congested cough Cardiovascular: regular rate and rhythm, nl pulses Gastrointestinal: soft, non-tender, distended (Minimal); No rebound or guarding Genitourinary - Female: nl external genitalia Musculoskeletal: nl extremities to inspection, nl gait and stance Extremities: normal pulses Neurological: nl mental status, nl speech, nl strength Skin: nl turgor; No rash or lesions Lymph: nl lymph nodes Results Result Diagram: 03/31/1941 03/31/1940 ROSA ELENA BRAMBILA MD Apr 01, 2019 16:24
[2019-04-01 20:07] VITALS: BP 134/68; PULSE 84; RESP 18
[2019-04-02 02:00] VITALS: BP 117/64; PULSE 80
[2019-04-02] MEDS: PANTOPRAZOLE (EC) 40 MG TAB PO SCH (05:48)
--- NOTE | 2019-04-02 07:49 | CONS ---
Consult Date/Type/Reason Admit Date/Time Mar 28, 2019 at 20:40 Initial Consult Date 03/30/19 Requesting Provider: JENNA SYKES NP Date/Time of Note DATE: 04/02/19 TIME: 07:46 Subjective Pt feels well. Has some gas but no nausea or vomiting. Abdominal pain minimal. Objective Vitals Vital Signs Date Temp Pulse Resp B/P (MAP) Pulse Ox O2 O2 Flow FiO2 Time Delivery Rate 04/02/19 98.4 80 117/64 100 02:00 (81) 04/01/19 18 20:07 03/29/19 Room Air 19:04 Intake and Output 04/01/19 04/01/19 04/02/19 1515:00 23:00 07:00 IntakeIntake Total 940 ml 480 ml BalanceBalance 940 ml 480 ml Exam NAD/A&Ox4 OP clear RRR no m/g/r CTA B Soft NT ND +BS No c/c/e Results/Medications Result Diagram: 03/31/19 0541 03/31/19 0540 Home Meds Reported Medications Polyethylene Glycol* (Miralax*) 17 Gm Powd.pack, 8.5 GM PO DAILY, #30 PACKET 03/28/19 Medications Current Medications IV Flush (NS 3 ml) 3 ml PER PROTOCOL IV Last administered on 03/30/19at 10:11; Admin Dose 3 ML; Start 03/28/19 at 21:00 Ondansetron HCl (Zofran Inj) 4 mg Q6H PRN IV NAUSEA/VOMITING; Start 03/28/19 at 21:00 Acetaminophen (Tylenol Tab) 650 mg Q6H PRN PO .PAIN 1-3 OR TEMP; Start 03/28/19 at 21:00 Morphine Sulfate (morphine) 2 mg Q4H PRN IV .SEVERE PAIN 7-10 Last administered on 03/30/19at 18:59; Admin Dose 2 MG; Start 03/28/19 at 21:00 Docusate Sodium (Colace) 100 mg Q12H PRN PO .CONSTIPATION; Start 03/28/19 at 21:00 Bisacodyl (Dulcolax) 5 mg DAILY PRN PO .CONSTIPATION Last administered on 03/30/19at 10:16; Admin Dose 5 MG; Start 03/28/19 at 21:00 Pantoprazole (Protonix Tab) 40 mg BID@06,18 PO Last administered on 04/02/19at 05:48; Admin Dose 40 MG; Start 03/30/19 at 18:00 Assessment/Plan Assessment/Plan (Daily) 54yo female with newly diagnosed gastric adenocarcinoma. Agree with EUS and PET/CT to properly stage pt. Unclear if pt needs to remain in hospital for these procedures. If discharged, pt will be f/u by Dr. Wilcox. Will recommend MMR/MSI evaluation to be done on tumor in addition to HER-2 evaluation. Ted Soliz MD Heme/Onc TED SOLIZ Apr 02, 2019 07:49
[2019-04-02 08:00] VITALS: BP 119/61; PULSE 82; RESP 16
[2019-04-02] MEDS ORDERED: BISA5TAB6 PO (12:09)
[2019-04-02] MEDS ORDERED: DOCU-144 PO (12:09)
--- NOTE | 2019-04-02 12:14 | PDOCDIS ---
Discharge Instructions CONDITION [id number] Patient Condition: [id number] Stable HOME CARE INSTRUCTIONS: [id number] Diet Instructions: [id number] Regular FOLLOW UP/APPOINTMENTS Follow-up Plan Ned Melgoza MD Specialty: Hematology/Oncology Office Address [id number] [place] [address], [address] [place] [address] Office OTHER ORDERS: Other Orders: 1. Take a regular diet as tolerated. 2. Resume activities as tolerated. 3. Please follow-up with your insurance for outpatient PET scan and endoscopic ultrasound. 4. Please follow-up with Dr. Melgoza (oncology) at the earliest. 5. Please go to the nearest emergency room if you have any significant abdominal pain, persistent nausea/vomiting, or any other unusual signs/symptoms. JENNA SYKES NP Apr 02, 2019 12:14
[2019-04-02 14:46] VITALS: BP 109/70; PULSE 82; RESP 16
--- NOTE | 2019-04-02 16:04 | DS ---
Date/Time of Note Date/Time of Note DATE: 04/02/19 TIME: 15:58 Discharge Summary Admission/Discharge Info Admit Date/Time Mar 28, 2019 at 20:40 Discharge Date/Time Discharge Diagnosis 1. Gastric adenocarcinoma. Newly diagnosed. 2. Prediabetes. Hemoglobin A1c 6.0. 3. Normocytic anemia. Patient Condition: Stable Consults 1. Lurdes Soto MD, Gastroenterology. 2. Carlos Mauricio MD, General Surgery. 3. Rm Melgoza MD, Oncology. Procedures Esophagogastroduodenoscopy on 03/29/2019 Impression: Large, clearly malignant ulcerated mass in the greater curvature, [address] er[address] Scan of the Abdomen and Pelvis IMPRESSION: Thickening of the gastric body is seen which has a slightly nodular border extending into the surrounding fat. This is seen along with findings suspicious for peritoneal carcinomatosis and this could represent gastric neoplasm with peritoneal involvement. This can be better evaluated with endoscopy. No renal or ureteral calculi with no evidence of hydronephrosis. Mild compression of T12 is of unknown chronicity. Hx of Present Illness This is a 54-year-old female with no significant past medical who was referred by her medical clinic for diffuse abdominal pain, cramping, and constipation, who was found to have underlying febrile illness, tachycardia, and lactic acid osis in the emergency room with CT of the abdomen showing thickening of the gastric body suspicious for peritoneal carcinomatosis and possible neoplasm, who was admitted to inpatient setting for further treatment and evaluation. Hospital Course The patient was started on empiric antimicrobials. The patient underwent jolly cultures. The patient's jolly cultures remained negative. Since the patient did not have any clear evidence of any infection, the patient's antibiotics were discontinued. Meanwhile, a gastroenterology consult was obtained because of the suspicious findings in the abdominal CT scan. The patient underwent a esophagogastroduodenoscopy on 03/29/2019 that showed a large clearly malignant mass in the stomach. Biopsies were taken and the biopsy turned out to be poorly differentiated adenocarcinoma of the stomach. Therefore, a general surgery consult and oncology consult was obtained. The patient's gastric mass is nonobstructing and the patient was able to tolerate oral intake. Meanwhile, the patient also needs a PET scan as well as endoscopic ultrasound to complete the staging of the cancer before initiation of chemotherapy and before provision of any surgical intervention. Since PET scan and endoscopic ultrasound are not available at [facility], these will be done as outpatient. Case management order was put in to assist the patient with the help of the insurance to obtain appointment for outpatient PET scan and endoscopic ultrasound at the earliest. The patient is otherwise a relatively healthy female with no significant past medical history. The patient was noticed to be prediabetic with a hemoglobin A1c of 6.0. The patient had very good glycemic trends during the hospital course. The patient was also noticed to have normocytic anemia. This could be anemia chronic disease. The patient's stool for OB x1 was negative. The p atient had a stable hospital course. The patient was cleared by consultants to be discharged home. Outpatient follow-up with oncology and outpatient follow-up for a PET scan and endoscopic ultrasound was ordered to be arranged with insurance. Discharge Instructions 1. Take a regular diet as tolerated. 2. Resume activities as tolerated. 3. Please follow-up with your insurance for outpatient PET scan and endoscopic ultrasound. 4. Please follow-up with Dr. Melgoza (oncology) at the earliest. 5. Please go to the nearest emergency room if you have any significant abdominal pain, persistent nausea/vomiting, or any other unusual signs/symptoms. The patient verbalized understanding of her discharge instructions. Discharge instructions were provided with the help of a yarn polishing machine operator. At this time I would like to thank all the consultants for seeing the patient, doing the necessary procedures, and providing clinical recommendations. The patient was seen in collaboration with Dr. Pryor. Home Meds Active Scripts Docusate Sodium* (Colace*) 100 Mg Capsule, 100 MG PO BID, #30 CAP Prov:JENNA SYKES NP 04/02/19 Bisacodyl* (Bisacodyl*) 5 Mg Tablet., 5 MG PO DAILY PRN for .CONSTIPATION, #10 TAB Prov:JENNA SYKES [employer]ET FINISHER 04/02/19 Discontinued Reported Medications Polyethylene Glycol* (Miralax*) 17 Gm Powd.pack, 8.5 GM PO DAILY, #30 PACKET 03/28/19 Follow-up Plan Ned Melgoza MD Specialty: Hematology/Oncology Office Address [address] [place] [address], [address] [place] [address] Office Primary Care Provider Not On Staff Doctor Time spent on discharge: > 30 minutes Pending Labs [facility] a non-profit non[facility] asset [address] [place], [place] [id number] ; Lab No: [id number] P Date: 03/29/2019 PRELIMINARY REPORT SPECIMEN: Gastric mass biopsy This preliminary microscopic diagnosis is based upon material currently available for examination. Final Pathological diagnosis is pending completion of one or more of the following studies: ( ) Special stains ( x ) Immunoperoxidase stains pending ( ) Slides consultation ( ) Examination of additional sections in processing ( ) Examination of previous pathology MICROSCOPIC DESCRIPTION: Biopsies of the gastric mass demonstrate fragments of extensively ulcerated tumor. Tumor is composed of medium to large cells disposed in sheets throughout the base of the ulcerated fragments. The malignant cells have irregular, vesicular and hyperchromatic nuclei containing small distinct nucleoli and a scant amount of amphophilic cytoplasm. Scattered apoptotic cells are present and mitotic figures are easily identified. No distinct gland formation is seen. Scattered tumor cells show intracytoplasmic mucin positivity in a PAS/Diastase stain (positive control concurrently reviewed). Only a scant amount of uninvolved gastric epithelium is present and shows mild to moderate chronic gastritis. No Helicobacter organisms are identified in a Giemsa stain (positive control concurrently reviewed). The histopathologic features are compatible with poorly-differentiated adenocarcinoma, diffuse type. A gastric primary is favored; however, due to the morphology of the cells, the remote possibility of metastatic tumor, particularly from the breast, is considered in the differential diagnosis. Immunoperoxidase stains are pending to confirm the histologic impression. PRELIMINARY MICROSCOPIC DIAGNOSIS: Gastric mass, biopsy: -- Adenocarcinoma, poorly-differentiated, diffuse type, with extensive ulceration. -- Chronic gastritis, mild. -- No Helicobacter organisms are identified in a Giemsa stain. COMMENT: Preliminary findings are discussed with Dr. Lurdes Soto on 03/31/19. While primary gastric adenocarcinoma is favored, immunoperoxidase stains are in progress to exclude metastatic carcinoma . A final report will be issued following review of the immunohistochemical stains. This case has also been reviewed by Rena Bradley M.D. who concurs with the above interpretation. NEMESIO/evelio Date of Service: 03/29/19; Date Received: 03/30/19 Dictated: 03/31/19; Transcribed: 03/31/19; Sent by Fax: 6/13/19; Reviewed: EDELMIRA Montgomery M.D. Pathologist Electronically Signed 03/31/2019 QUINCY MONTGOMERY M.D. PATIENT: DINESH SEGOVIA RENA BRADLEY M.D. AGE/SEX/: 53/F 1965 [employer] [facility] MR NO: [id number] VISIT: [id number] ROOM NO: PHYSICIAN: Marisol SOTO, LURDES BARRETT M.D., [facility] [place] EXAMINATION REPORT ANATOMIC AND CLINICAL PATHOLOGY CONSULTATION GROSS EXAMINATION PERFORMED BY: [facility] - [address] [place] [address], [address] - [place] ; JENNA SYKES NP Apr 02, 2019 16:04
== END 2019-04-02 17:00 | disposition home or self-care (01) | DRG 375 ==
LOC: E/R 18:04 → 2NE 20:40
PROVIDERS: ADMIT Family Medicine; ATTEND Family Medicine
PROC: 0DB68ZX Excision of Stomach, Via Natural or Artificial Opening Endoscopic, Diagnostic (ICD-10-PCS; principal; 2019-03-29 19:30)
DX: C16.2 Malignant neoplasm of body of stomach (principal); C78.6 Secondary malignant neoplasm of retroperitoneum and peritoneum; E87.2 Acidosis; D64.9 Anemia, unspecified; R73.03 Prediabetes; E87.6 Hypokalemia; E66.3 Overweight; Z71.3 Dietary counseling and surveillance; D63.8 Anemia in other chronic diseases classified elsewhere; R00.0 Tachycardia, unspecified; R50.9 Fever, unspecified
CPT/HCPCS: 36415; 71045; 74176; 80048; 80053; 80061; 80202; 81003; 82270; 82378; 82728; 82784; 83036; 83540; 83605; 83615; 83690; 83735; 84100; 84155; 84165; 84439; 84443; 84484; 84560; 85025; 85610; 85730; 86300; 86301; 86304; 86305; 86320; 86325; 86850; 86900; 86901; 87045; 87086; 88305; 88312; 88313; 88341; 88342; 93005; 96361; 96365; 96375; C9113; J0696; J1885; J2270; J2405; J2543; J3370; J7030; J7050

== ENCOUNTER 2019-05-08 14:49 | Emergency (ER) | payer BC ==
[~2019-05-08] VITALS: Ht 154.9 cm; Wt 59.1 kg
[~2019-05-08 14:49] MED LIST: BISA5TAB6 PO; DOCU-144 PO
[2019-05-08 14:54] VITALS: Ht 154.9 cm; Wt 59.1 kg
--- NOTE | 2019-05-08 16:52 | ERD ---
ER Documentation Chief Complaint Chief Complaint c/o mid to upper abd pain, recently diagnosed with "stomach cancer" HPI This is a 54-year-old female with a history of stomach cancer per the center presents to the emergency room for evaluation of abdominal pain and cramping. The patient has not had a bowel movement in 3 days. She has been taking Colace. The patient has been passing gas, however they were concerned and came to the emergency room for evaluation. The patient localizes her abdominal pain to the midportion of her abdomen and again describes as a cramping pain not associated with any vomiting, fever, chills, chest pain, shortness of breath. Her Colace has not been helping with her symptoms. ROS All systems reviewed and are negative except as per history of present illness. Medications Home Meds Discontinued Scripts Docusate Sodium* (Colace*) 100 Mg Capsule, 100 MG PO BID, #30 CAP Prov:JENNA SYKES BORDEREAU CLERK 04/02/19 Bisacodyl* (Bisacodyl*) 5 Mg Tablet.dr, 5 MG PO DAILY PRN for .CONSTIPATION, #10 TAB Prov:JENNA SYKES BORDEREAU CLERK 04/02/19 Allergies Allergies: Coded Allergies: No Known Allergy (Unverified , 05/08/19) PMhx/Soc History of Surgery: Yes (2-c-secion, surgery for mumps(1971) ) Anesthesia Reaction: No Hx Neurological Disorder: No Hx Respiratory Disorders: No Hx Cardiac Disorders: No Hx Psychiatric Problems: No Hx Miscellaneous Medical Probl: Yes (stomach CA) Hx Alcohol Use: Yes (once in a while, in parties ) Hx Substance Use: No Hx Tobacco Use: No Smoking Status: Never smoker Physical Exam Vitals Vital Signs Date Temp Pulse Resp B/P (MAP) Pulse Ox O2 O2 Flow FiO2 Time Delivery Rate 05/08/19 98.7 70 20 132/72 97 14:54 (92) Physical Exam INITIAL VITAL SIGNS: Reviewed by me GENERAL: The patient is well developed and appropriate for usual state of health in no apparent distress HEENT: Pupils equal, round, and reactive to light. EOMI. There is no scleral icterus. NECK: C-spine is soft and supple, there is no meningismus. There is no cervical lymphadenopathy. LUNGS: Clear to auscultation bilaterally. There are no rales, wheezes or rhonchi. HEART: Regular rate and rhythm, no murmurs, clicks, rubs or gallops. ABDOMEN: Periumbilical tenderness to palpation, otherwise soft, non-tender, non- distended. There are bowel sounds in all four quadrants. No rebound or guarding. EXTREMITIES: There is no peripheral cyanosis or edema. No focal swelling or erythema. NEUROLOGICAL: The patient moves all four extremities with 5/5 strength. Cranial nerves II - XII are intact. Normal gait. Alert and oriented SKIN: There is no apparent rash or petechiae. HEME/LYMPHATIC: There is no evidence of excessive bruising or lymphedema. PSYCHIATRIC: The patient does not appear anxious or depressed. Result Diagram: 05/08/19 1534 05/08/19 1534 Results 24 hrs Laboratory Tests Test 05/08/19 15:34 White Blood Count 10.4 10^3/ul Red Blood Count 4.52 10^6/ul Hemoglobin 12.7 g/dl Hematocrit 38.6 % Mean Corpuscular Volume 85.4 fl Mean Corpuscular Hemoglobin 28.1 pg Mean Corpuscular Hemoglobin Concent 32.9 g/dl Red Cell Distribution Width 15.2 % Platelet Count 376 10^3/UL Mean Platelet Volume 9.7 fl Immature Granulocytes % 0.200 % Neutrophils % 76.4 % Lymphocytes % 15.1 % Monocytes % 7.4 % Eosinophils % 0.4 % Basophils % 0.5 % Nucleated Red Blood Cells % 0.0 /100WBC Immature Granulocytes # 0.020 10^3/ul Neutrophils # 7.9 10^3/ul Lymphocytes # 1.6 10^3/ul Monocytes # 0.8 10^3/ul Eosinophils # 0.0 10^3/ul Basophils # 0.1 10^3/ul Nucleated Red Blood Cells # 0.0 10^3/ul Sodium Level 139 mmol/L Potassium Level 3.8 mmol/L Chloride Level 103 mmol/L Carbon Dioxide Level 27 mmol/L Anion Gap 9 Blood Urea Nitrogen 11 mg/dl Creatinine 0.72 mg/dl Est Glomerular Filtrat Rate mL/min > 60 mL/min Glucose Level 116 mg/dl Calcium Level 9.3 mg/dl Total Bilirubin 0.4 mg/dl Direct Bilirubin 0.00 mg/dl Indirect Bilirubin 0.4 mg/dl Aspartate Amino Transf (AST/SGOT) 24 IU/L Alanine Aminotransferase (ALT/SGPT) 28 IU/L Alkaline Phosphatase 86 IU/L Total Protein 7.5 g/dl Albumin 4.1 g/dl Globulin 3.40 g/dl Albumin/Globulin Ratio 1.20 Lipase 120 U/L Current Medications Medications Dose Sig/Chica Start Time Status Last (Trade) Ordered Route PRN Stop Time Admin Dose Reason Admin Morphine 2 mg ONCE STAT 05/08/19 DC 05/08/19 Sulfate IV 17: 17:24 (morphine) 05/08/19 17:19 Ondansetron 4 mg ONCE STAT 05/08/19 DC 05/08/19 HCl (Zofran IV 17:17 17:24 Inj) 05/08/19 17:19 Sodium 500 ml @ Q1H STAT 05/08/19 05/08/19 Chloride 500 mls/hr IV 17:17 17:24 05/08/19 18:16 Procedures/MDM 1. There is mild left hydronephrosis as well as mild left hydroureter. 2. There are multiple sub centimeter mesenteric lymph nodes. There is bilateral ground lymphadenopathy. An index right groin lymph node measures 1 cm. There is mild intraperitoneal free fluid with the presence of multiple small soft tissue nodular foci within the peritoneal cavity with mild anterior mesenteric thickening. This is concerning for neoplasm. 3. There is irregular wall thickening of the distal gastric body with a nodular border extending into the surrounding fat. There is also stable to slightly improved peritoneal carcinomatosis. This is concerning for neoplasm. 4. There is small amount of free fluid in the pelvisCT abdomen pelvis without: This 54-year-old female presents to the emergency room for evaluation of a bdominal pain. She does have a history of stomach cancer, and was diagnosed with constipation. She has been taking Colace with only minimal relief. The patient has been passing gas and did have some tenderness on my examination so I did obtain a CT to rule out obstruction. CT does not show any signs of obstruction however there is redemonstration of peritoneal carcinomatosis. There is no signs of leukocytosis, I doubt she has sepsis. The patient was given IV analgesia, IV fluids, IV nausea medication on my reevaluation she is feeling much better. The patient will be discharged at this time with a prescription for [place] for breakthrough pain and was advised to follow-up with her primary care physician or return immediately to the ER if she would have worsening pain or any fevers. Departure Diagnosis: Primary Impression: Peritoneal carcinomatosis Additional Impression: Abdominal pain Condition: Fair YRN LIN DO May 08, 2019 16:52
[2019-05-08] MEDS ORDERED: morphine 4 MG/ML VIAL IV STA (17:17)
[2019-05-08] MEDS ORDERED: SOD CHLORIDE 0.9% 500 ML IV STA (17:17)
[2019-05-08] MEDS ORDERED: ONDANSETRON 4 MG INJ IV STA (17:17)
[2019-05-08] MEDS ORDERED: HYDR-4011 PO (17:32)
[2019-05-08] MEDS ORDERED: POLY17PO6 PO (17:41)
[2019-05-08] MEDS ORDERED: DOCU-159 PO (17:41)
[2019-05-08 17:48] VITALS: BP 124/78; PULSE 80; RESP 15
== END 2019-05-08 17:49 | disposition home or self-care (01) ==
LOC: E/R 14:49
DX: C78.6 Secondary malignant neoplasm of retroperitoneum and peritoneum (principal); R10.33 Periumbilical pain; R40.2142 Coma scale, eyes open, spontaneous, at arrival to emergency department; R40.2252 Coma scale, best verbal response, oriented, at arrival to emergency department; R40.2362 Coma scale, best motor response, obeys commands, at arrival to emergency department; Z85.028 Personal history of other malignant neoplasm of stomach
CPT/HCPCS: 36415; 74176; 80053; 83690; 85025; 96374; 96375; 99285; J2270; J2405; J7040

== ENCOUNTER 2019-05-19 21:52 | Emergency (ER) | payer BC ==
[~2019-05-19] VITALS: Ht 149.9 cm; Wt 58.2 kg
[~2019-05-19 21:52] MED LIST changes: -BISA5TAB6 PO; -DOCU-144 PO; +DOCU-159 PO; +HYDR-4011 PO; +OXYC-279 PO; +POLY17PO6 PO
[2019-05-19 22:43] VITALS: Ht 149.9 cm; Wt 58.2 kg
--- NOTE | 2019-05-20 00:58 | ERD ---
ER Documentation Chief Complaint Chief Complaint DIFUSE ABD PAIN RECENTLY DC W/ PERITONEAL CA EGD & COLONOSCOPY DONE THU/THU HPI This is a 54-year-old woman with a history of gastric adenocarcinoma status post upper endoscopy and colonoscopy about 3 days ago presenting with diffuse abdominal cramping. She also had central venous line catheter placed in the right chest yesterday. She has had no blood per rectum or melena no fevers or chills, no complaints of chest pain or shortness of breath. She has diffuse abdominal cramping on a regular basis and has not used analgesics prior to arrival ROS All systems reviewed and are negative except as per history of present illness. Medications Home Meds Active Scripts Oxycodone HCl/Acetaminophen (Percocet 5-325 mg Tablet) 1 Each Tablet, 1 EACH PO TID PRN for PAIN LEVEL 6-10, #12 TAB Prov:MACO BURGOS MD 05/20/19 Docusate Sodium* (Docusate Sodium*) 100 Mg Capsule, 100 MG PO BID, #60 CAP Prov:YRN LIN DO 05/08/19 Polyethylene Glycol* (Miralax*) 17 Gm Powd.pack, 17 GM PO BID, #60 PACKET Prov:YRN LIN DO 05/08/19 Hydrocodone/Acetaminophen ([place] 5-325 Tablet) 1 Each Tablet, 1 TAB PO Q6H PRN for PAIN, #15 TAB Prov:YRN LIN DO 05/08/19 Allergies Allergies: Coded Allergies: No Known Allergy (Unverified , 05/08/19) PMhx/Soc Gastric adenocarcinoma, prediabetes History of Surgery: Yes (2-c-secion, surgery for mumps(1971) ) Anesthesia Reaction: No Hx Neurological Disorder: No Hx Respiratory Disorders: No Hx Cardiac Disorders: No Hx Psychiatric Problems: No Hx Miscellaneous Medical Probl: Yes (stomach CA) Hx Alcohol Use: Yes (once in a while, in parties ) Hx Substance Use: No Hx Tobacco Use: No Physical Exam Vitals Vital Signs Date Temp Pulse Resp B/P (MAP) Pulse Ox O2 O2 Flow FiO2 Time Delivery Rate 05/20/19 72 16 122/85 99 Room Air 02:39 (97) 05/19/19 98.6 75 18 137/67 98 22:43 (90) Physical Exam GENERAL: Well-developed, well-nourished, well-hydrated, in no apparent distress, looks nontoxic in appearance CARDIAC: Regular rate and rhythm, no murmurs rubs or gallops LUNGS: Clear bilaterally no wheezing crackles or stridor ABDOMEN: Soft nontender, no guarding, no rigidity, no rebound, no psoas sign no obturator sign. Normoactive bowel sounds SKIN: Warm and dry to touch, no abrasions, contusions, or hematomas, no lacerations, no ecchymosis, no target lesions, and without ulcers EXTREMITIES: No clubbing cyanosis or edema, calves are bilaterally symmetrical, no Homans sign, no popliteal cord sign. Distal pulses equal and bilateral PSYCH: Normal affect without agitation or irritability Result Diagram: 05/20/1914405/20/19144 Results 24 hrs Laboratory Tests Test 05/20/19 01:45 White Blood Count 10.8 10^3/ul Red Blood Count 4.65 10^6/ul Hemoglobin 13.2 g/dl Hematocrit 39.9 % Mean Corpuscular Volume 85.8 fl Mean Corpuscular Hemoglobin 28.4 pg Mean Corpuscular Hemoglobin Concent 33.1 g/dl Red Cell Distribution Width 15.3 % Platelet Count 366 10^3/UL Mean Platelet Volume 11.1 fl Immature Granulocytes % 0.200 % Neutrophils % 77.0 % Lymphocytes % 15.4 % Monocytes % 6.4 % Eosinophils % 0.6 % Basophils % 0.4 % Nucleated Red Blood Cells % 0.0 /100WBC Immature Granulocytes # 0.020 10^3/ul Neutrophils # 8.3 10^3/ul Lymphocytes # 1.7 10^3/ul Monocytes # 0.7 10^3/ul Eosinophils # 0.1 10^3/ul Basophils # 0.0 10^3/ul Nucleated Red Blood Cells # 0.0 10^3/ul Sodium Level 140 mmol/L Potassium Level 4.6 mmol/L Chloride Level 104 mmol/L Carbon Dioxide Level 28 mmol/L Anion Gap 8 Blood Urea Nitrogen 7 mg/dl Creatinine 0.52 mg/dl Est Glomerular Filtrat Rate mL/min > 60 mL/min Glucose Level 123 mg/dl Calcium Level 9.2 mg/dl Total Bilirubin 0.5 mg/dl Direct Bilirubin 0.00 mg/dl Indirect Bilirubin 0.5 mg/dl Aspartate Amino Transf (AST/SGOT) 35 IU/L Alanine Aminotransferase (ALT/SGPT) 21 IU/L Alkaline Phosphatase 68 IU/L Total Protein 7.6 g/dl Albumin 4.2 g/dl Globulin 3.40 g/dl Albumin/Globulin Ratio 1.23 Lipase 141 U/L Current Medications Medications Dose Sig/[place] Start Time Status Last (Trade) Ordered Route PRN Stop Time Admin Dose Reason Admin Sodium 500 ml @ Q1H STAT 05/20/19 DC 05/20/19 Chloride 500 mls/hr IV 01:12 05/20/19 01:43 02:11 Ondansetron 4 mg ONCE STAT 05/20/19 DC 05/20/19 HCl (Zofran IV 01:12 05/20/19 01:44 Inj) 01:13 40 ml ONCE STAT 05/20/19 DC 05/20/19 Miscellaneous PO 01:12 05/20/19 01:43 Medication 01:13 (Gi Cocktail (2)) Belladonna/ 2 tab ONCE STAT 05/20/19 DC 05/20/19 Phenobarbital PO 01:12 05/20/19 01:44 () 01:13 Ketorolac 15 mg ONCE STAT 05/20/19 DC 05/20/19 Tromethamine IV 01:12 05/20/19 01:44 (Toradol) 01:13 Procedures/MDM IV line was established patient was placed on laboratory coordinator rhythm strip revealed a sinus rhythm at about 80 bpm with upright P and T waves. Patient was afebrile Administered 500 cc normal saline IV, morphine 2 mg IV, Zofran 4 mg IV, and a GI cocktail p.o. CT scan of the abdomen and pelvis performed a week ago revealed: 1. There is mild left hydronephrosis as well as mild left hydroureter. 2. There are multiple sub centimeter mesenteric lymph nodes. There is bilateral ground lymphadenopathy. An index right groin lymph node measures 1 cm. There is mild intraperitoneal free fluid with the presence of multiple small soft tissue nodular foci within the peritoneal cavity with mild anterior mesenteric thickening. This is concerning for neoplasm. 3. There is irregular wall thickening of the distal gastric body with a nodular border extending into the surrounding fat. There is also stable to slightly improved peritoneal carcinomatosis. This is concerning for neoplasm. 4. There is small amount of free fluid in the pelvis. One AP view of the chest performed, read by me reveals no acute infiltrates, normal mediastinum, sharp costophrenic and cardiac borders, catheter in the right chest. Otherwise unremarkable chest x-ray. CBC and electrolytes are normal, liver function tests were normal. Differential diagnoses considered, included but not limited to acute coronary syndrome, pulmonary embolism, aortic dissection, abdominal aortic aneurysm, sepsis, stroke, meningitis, encephalitis, pneumonia, appendicitis, cholecystitis, bowel obstruction, pyelonephritis, nephrolithiasis, cystitis, as well as metabolic, hematologic, and electrolyte abnormalities. As well as abscess, cellulitis, fractures, and dislocations. Patient feels much better at this time, and vital signs are normal, symptoms have improved. I did give strict instructions to return to the ED if symptoms continue or worsen, patient will otherwise follow-up with primary care physician. Patient understood instructions and agreed to plan. Disclaimer: Inadvertent spelling and grammatical errors are likely due to EHR/dictation software use and do not reflect on the overall quality of patient care. Also, please note that the electronic time recorded on this note does not necessarily reflect the actual time of the patient encounter. Departure Diagnosis: Primary Impression: Abdominal pain Abdominal location: generalized Qualified Codes: R10.84 - Generalized abdominal pain Condition: Good MACO BURGOS MD May 20, 2019 00:58
[2019-05-20] MEDS ORDERED: BELLADONNA/PHENOBARBITAL TAB PO STA (01:12)
[2019-05-20] MEDS ORDERED: ONDANSETRON 4 MG INJ IV STA (01:12)
[2019-05-20] MEDS ORDERED: LIDOCAINE/MYLANTA 40 ML BTL PO STA (01:12)
[2019-05-20] MEDS ORDERED: SOD CHLORIDE 0.9% 500 ML IV STA (01:12)
[2019-05-20] MEDS ORDERED: KETOROLAC 15 MG INJ IV STA (01:12)
[2019-05-20 02:39] VITALS: BP 122/85; PULSE 72; RESP 16
== END 2019-05-20 02:40 | disposition home or self-care (01) ==
LOC: E/R 21:52
DX: R10.84 Generalized abdominal pain (principal); R40.2142 Coma scale, eyes open, spontaneous, at arrival to emergency department; R40.2362 Coma scale, best motor response, obeys commands, at arrival to emergency department; R40.2252 Coma scale, best verbal response, oriented, at arrival to emergency department; Z85.028 Personal history of other malignant neoplasm of stomach
CPT/HCPCS: 36415; 71045; 80053; 83690; 85025; 96374; 96375; 99284; J1885; J2405; J7040